=== PATIENT | female | born 1960 | race Caucasian/White ===

== ENCOUNTER 2019-11-13 09:36 | Emergency (ER) | payer SELFPAY ==
[~2019-11-13] VITALS: Ht 170.2 cm; Wt 102.5 kg
[~2019-11-13 09:36] MED LIST: AZITHROMYCIN250 MG PO; VITAMIN D1000 UNI1 PO
[2019-11-13] MEDS ORDERED: SODIUM CHLORIDE 0.9% 1000ML 1,000 ML IV STA (10:28)
[2019-11-13 10:43] LABS: BASOPHILS % 0.2 % (0.0-1.0); HEMATOCRIT 40.8 % (34.2-44.1); HEMOGLOBIN 13.2 g/dL (12.0-16.0); LYMPHOCYTES # (AUTO) 1.7 (1.0-3.2); LYMPHOCYTES % 27.2 % (18.0-39.1); MEAN CORPUSCULAR HEMOGLOBIN 29.5 pg (28-32); MEAN CORPUSCULAR HGB CONC 32.4 g/dL (31-35); MEAN CORPUSCULAR VOLUME 91.3 fL (81-99); MONOCYTES # (AUTO) 0.2 (0.2-0.8); MONOCYTES % 3.7 % (4.4-11.3); NEUTROPHILS # (AUTO) 4.2 (2.1-6.9); NEUTROPHILS % 68.7 % (38.7-80.0); PLATELET COUNT 258 x10e3/uL (140-360); RED BLOOD COUNT 4.47 x10e6/uL (3.6-5.1); RED CELL DISTRIBUTION WIDTH 12.5 % (11.7-14.4)
[2019-11-13] MEDS ORDERED: ONDANSETRON HCL INJ 2MG/ML 2ML 2 MG/ML VIAL IV STA (11:00)
[2019-11-13 11:03] LABS: ALBUMIN 3.6 g/dL (3.5-5.0); ALBUMIN/GLOBULIN RATIO 0.8 (0.8-2.0); ANION GAP 15.7 mmol/L (8-16); CALCIUM 8.9 mg/dL (8.4-10.2); CREATININE, SERUM 1.09 mg/dL (0.57-1.11); MAGNESIUM 1.8 MG/DL (1.3-2.1); POTASSIUM 3.7 mmol/L (3.5-5.1)
[2019-11-13 11:09] LABS: CREATINE KINASE MB 0.6 ng/mL (0-5.0)
[2019-11-13] MEDS ORDERED: ACETAMINOPHEN 325 MG TAB PO ONE (11:30)
[2019-11-13] MEDS ORDERED: IBUPROFEN 800MG/ 200ML 800 MG in SODIUM CHLORIDE 0.9% 250ML 250 ML IV ONE (11:30)
[2019-11-13] MEDS ORDERED: PANTOPRAZOLE 40 MG 10ML VIAL IV ONE (11:30)
--- NOTE | 2019-11-13 12:13 | Emergency Department Note ---
History of Present Illnes History of Present Illness Chief Complaint: COVID PUI History of Present Illness This is a 59 year old female Patient in from home with complaints of fever, nausea and vomiting that started last night. Patient was tested for covid 19 at [facility] last thursday11/06/2019 but has not received results. Patient states that she got tested because she had a little bit of a cough. Patient states that she feels weak and tired. Patient is febrile in traige but no tachypnea or respiratory distress noted. Historian: Patient Arrival Mode: Car Rn Urology Required: No Onset (how long ago): day(s) (1) Radiation: Reports non-radiation Severity: mild Onset quality: gradual Timing of current episode: intermittent Progression: waxing and waning Chronicity: new Context: Reports recent illness Relieving factors: none Exacerbating factors: none Associated symptoms: Reports cough, Reports fever/chills, Reports nausea/vomiting Treatments prior to arrival: none Past Medical/Family History Physician Review I have reviewed the patient's past medical and family history. Any updates have been documented here. Past Medical History Recent Fever: Yes Clinical Suspicion of Infectio: Yes New/Unexplained Change in Ment: No Past Medical History: None Past Surgical History: Cholecysctectomy Other Surgery: 2 C-SECTIONS Social History Smoking Cessation: Never Smoker Counseling Performed: No Alcohol Use: None Any Illegal Drug Use: No TB Exposure/Symptoms: No Physically hurt or threatened: No Family History Family history of heart diseas: No Other Last Tetanus: UTD Any Pre-Existing Lines (PICC,: No Review of Systems Review of Systems Constitutional: Reports as per HPI EENTM: Reports no symptoms Cardiovascular: Reports no symptoms Respiratory: Reports as per HPI Gastrointestinal: Reports no symptoms Genitourinary: Reports no symptoms Musculoskeletal: Reports no symptoms Integumentary: Reports no symptoms Neurological: Reports no symptoms Psychological: Reports no symptoms Endocrine: Reports no symptoms Hematological/Lymphatic: Reports no symptoms Physical Exam Related Data Allergies: Coded Allergies: Penicillins (Verified Allergy, Severe, 11/13/19) Uncoded Allergies: PCN (Allergy, Severe, ANAPHYLAXIS, 04/27/16) Triage Vital Signs Vital Signs Date Time Temp Pulse Resp B/P (MAP) Pulse Ox O2 Delivery O2 Flow Rate FiO2 11/13/19 10:00 102.0 119 19 113/66 97 Room Air Vital signs reviewed: Yes Physical Exam CONSTITUTIONAL Constitutional: Present well-developed, Present well-nourished HENT HENT: Present normocephalic, Present atraumatic, Present oropharynx clear/moist, Present nose normal HENT L/R: Present left ext ear normal, Present right ext ear normal EYES Eyes: Reports PERRL, Reports conjunctivae normal NECK Neck: Present ROM normal PULMONARY Pulmonary: Present effort normal, Present breath sounds normal CARDIOVASCULAR Cardiovascular: Present regular rhythm, Present heart sounds normal, Present capillary refill normal, Present normal rate GASTROINTESTINAL Abdominal: Present soft, Present nontender, Present bowel sounds normal GENITOURINARY Genitourinary: Present exam deferred SKIN Skin: Present warm, Present dry MUSCULOSKELETAL Musculoskeletal: Present ROM normal NEUROLOGICAL Neurological: Present alert, Present oriented x 3, Present no gross motor or sensory deficits PSYCHOLOGICAL Psychological: Present mood/affect normal, Present judgement normal Results Laboratory Result Diagram: 11/13/19 1034 11/13/19 1034 Laboratory Laboratory Tests Test 11/13/19 10:34 White Blood Count 6.14 x10e3/uL (4.8-10.8) Red Blood Count 4.47 x10e6/uL (3.6-5.1) Hemoglobin 13.2 g/dL (12.0-16.0) Hematocrit 40.8 % (34.2-44.1) Mean Corpuscular Volume 91.3 fL (81-99) Mean Corpuscular Hemoglobin 29.5 pg (28-32) Mean Corpuscular Hemoglobin Concent 32.4 g/dL (31-35) Red Cell Distribution Width 12.5 % (11.7-14.4) Platelet Count 258 x10e3/uL (140-360) Neutrophils (%) (Auto) 68.7 % (38.7-80.0) Lymphocytes (%) (Auto) 27.2 % (18.0-39.1) Monocytes (%) (Auto) 3.7 % (4.4-11.3) Eosinophils (%) (Auto) 0.0 % (0.0-6.0) Basophils (%) (Auto) 0.2 % (0.0-1.0) Neutrophils # (Auto) 4.2 (2.1-6.9) Lymphocytes # (Auto) 1.7 (1.0-3.2) Monocytes # (Auto) 0.2 (0.2-0.8) Eosinophils # (Auto) 0.0 (0.0-0.4) Basophils # (Auto) 0.0 (0.0-0.1) Absolute Immature Granulocyte (auto 0.01 x10e3/uL (0-0.1) Sodium Level 143 mmol/L (136-145) Potassium Level 3.7 mmol/L (3.5-5.1) Chloride Level 106 mmol/L (98-107) Carbon Dioxide Level 25 mmol/L (22-29) Anion Gap 15.7 mmol/L (8-16) Blood Urea Nitrogen 18 mg/dL (7-26) Creatinine 1.09 mg/dL (0.57-1.11) Estimat Glomerular Filtration Rate 51 ML/MIN (60-) BUN/Creatinine Ratio 17 (6-25) Glucose Level 106 mg/dL (74-118) Calcium Level 8.9 mg/dL (8.4-10.2) Magnesium Level 1.8 MG/DL (1.3-2.1) Total Bilirubin 0.4 mg/dL (0.2-1.2) Aspartate Amino Transf (AST/SGOT) 23 IU/L (5-34) Alanine Aminotransferase (ALT/SGPT) 27 IU/L (0-55) Alkaline Phosphatase 68 IU/L (40-150) Creatine Kinase 68 IU/L (29-168) Creatine Kinase MB 0.60 ng/mL (0-5.0) Troponin I 0.025 ng/mL (0-0.300) Total Protein 7.9 g/dL (6.5-8.1) Albumin 3.6 g/dL (3.5-5.0) Globulin 4.3 g/dL (2.3-3.5) Albumin/Globulin Ratio 0.8 (0.8-2.0) Lab results reviewed: Yes Imaging Imaging results reviewed: Yes Impressions EXAMINATION: CHEST SINGLE (PORTABLE) INDICATION: Cough fever and shortness of breath. COMPARISON: None FINDINGS: TUBES and LINES: None. LUNGS: Normal lung volume with hazy opacification of the lung bases. PLEURA: No pleural effusion or pneumothorax. HEART AND MEDIASTINUM: The cardiomediastinal silhouette is unremarkable. BONES AND SOFT TISSUES: No acute osseous lesion. Soft tissues are unremarkable. UPPER ABDOMEN: No free air under the diaphragm. IMPRESSION: Hazy opacification the bilateral lung bases which may represent atelectasis and/or developing pneumonia in the proper clinical setting. Signed by: Richie Ronquillo MD on 11/13/2019 1:15 PM Assessment & Plan Medical Decision Making MDM cough, f/c, n/v - likely COVID - check CBC, CHEM'S, CXR - R/O DEHYDRATION WITH RENAL INSUFF, PNEUMONIA (PT ON ZPACK, SEEN HERE RECENTLY), ELECTROLYTE ABNL Reassessment Reassessment self-quarantine, finish zpack, proning, f/u pcp Assessment & Plan Final Impression: (1) COVID-19 Depart Disposition: HOME, SELF-CARE Last Vital Signs Date Time Temp Pulse Resp B/P (MAP) Pulse Ox O2 Delivery O2 Flow Rate FiO2 11/13/19 11:28 86 27 127/72 98 Room Air 11/13/19 10:00 102.0 Home Meds Reported Medications Cholecalciferol (Vitamin D3) (VITAMIN D) 1,000 Unit Tablet, 1000 UNIT PO DAILY, #30 TAB 07/03/16 Medications in the ED Pantoprazole Sodium 40 mg ONCE ONCE IV Last administered on 11/13/19at 11:15; Admin Dose 40 MG; Start 11/13/19 at 11:30; Stop 11/13/19 at 11:31; Status DC Ondansetron HCl 4 mg ONCE STAT IV Last administered on 11/13/19at 11:15; Admin Dose 4 MG; Start 11/13/19 at 11:00; Stop 11/13/19 at 11:01; Status DC Sodium Chloride 1,000 ml @ 0 mls/hr Q0M STAT IV Last administered on 11/13/19at 10:52; Admin Dose 1,000 MLS/HR; Start 11/13/19 at 10:28; Stop 11/13/19 at 10:31; Status DC Ibuprofen 800 mg/ Sodium Chloride 450 ml @ 500 mls/hr NOW ONCE IV Last administered on 11/13/19at 11:27; Admin Dose 500 MLS/HR; Start 11/13/19 at 11:30; Stop 11/13/19 at 12:23 Acetaminophen 650 mg ONCE ONCE PO Last administered on 11/13/19at 11:15; Admin Dose 650 MG; Start 11/13/19 at 11:30; Stop 11/13/19 at 11:31; Status DC SURENDRA NUÑEZ MD Nov 13, 2019 12:13
--- NOTE | 2019-11-13 13:19 | Diagnostic Imaging Report ---
EXAMINATION: CHEST SINGLE (PORTABLE) INDICATION: Cough fever and shortness of breath. COMPARISON: None FINDINGS: TUBES and LINES: None. LUNGS: Normal lung volume with hazy opacification of the lung bases. PLEURA: No pleural effusion or pneumothorax. HEART AND MEDIASTINUM: The cardiomediastinal silhouette is unremarkable. BONES AND SOFT TISSUES: No acute osseous lesion. Soft tissues are unremarkable. UPPER ABDOMEN: No free air under the diaphragm. IMPRESSION: Hazy opacification the bilateral lung bases which may represent atelectasis and/or developing pneumonia in the proper clinical setting. Signed by: Richie Ronquillo MD on 11/13/2019 1:15 PM
== END 2019-11-13 13:57 | disposition home or self-care (01) ==
LOC: ER 10:22
DX: U07.1 COVID-19 (principal); R50.9 Fever, unspecified; R05 Cough
CPT/HCPCS: 36415; 71045; 80053; 82550; 82553; 83735; 84484; 85025; 99284; C9113; J2405; J7030; J7050

== ENCOUNTER 2019-11-14 22:15 | Emergency (ER) | payer SELFPAY ==
[~2019-11-14] VITALS: Ht 170.2 cm; Wt 102.5 kg
[2019-11-14] MEDS ORDERED: ONDANSETRON HCL 4 MG ORAL DISINTEGRATING TAB PO ONE (22:30)
--- NOTE | 2019-11-14 22:30 | Emergency Department Note ---
History of Present Illnes History of Present Illness History of Present Illness This is a 59 year old female arrived to the ED for shortness of breath secondary to coronavirus, immediately upon arrival patient states she feels fine and states she panicked. Patient states she would like to go home. Severity: mild Duration (how long): day(s) Timing of current episode: constant Progression: unchanged Chronicity: recurrent Context: Reports recent illness Relieving factors: none Exacerbating factors: none Past Medical/Family History Physician Review I have reviewed the patient's past medical and family history. Any updates have been documented here. Past Medical History Past Medical History: None Past Surgical History: Cholecysctectomy Other Surgery: 2 C-SECTIONS Other Last Tetanus: UTD Review of Systems Review of Systems Constitutional: Reports as per HPI, Reports fever, Reports malaise, Reports weakness EENTM: Reports no symptoms Cardiovascular: Reports no symptoms Respiratory: Reports as per HPI, Reports chest congestion Gastrointestinal: Reports no symptoms Genitourinary: Reports no symptoms Musculoskeletal: Reports no symptoms Integumentary: Reports no symptoms Neurological: Reports no symptoms Psychological: Reports no symptoms Endocrine: Reports no symptoms Hematological/Lymphatic: Reports no symptoms Review of other systems: All other systems negative Physical Exam Related Data Allergies: Coded Allergies: Penicillins (Verified Allergy, Severe, 11/13/19) Uncoded Allergies: PCN (Allergy, Severe, ANAPHYLAXIS, 04/27/16) Vital signs reviewed: Yes Physical Exam CONSTITUTIONAL Constitutional: Present well-developed, Present well-nourished HENT HENT: Present normocephalic, Present atraumatic, Present oropharynx clear/moist, Present nose normal HENT L/R: Present left ext ear normal, Present right ext ear normal EYES Eyes: Reports PERRL, Reports conjunctivae normal NECK Neck: Present ROM normal PULMONARY Pulmonary: Present effort normal, Present breath sounds normal CARDIOVASCULAR Cardiovascular: Present regular rhythm, Present heart sounds normal, Present capillary refill normal, Present normal rate GASTROINTESTINAL Abdominal: Present soft, Present nontender, Present bowel sounds normal GENITOURINARY Genitourinary: Present exam deferred SKIN Skin: Present warm, Present dry MUSCULOSKELETAL Musculoskeletal: Present ROM normal NEUROLOGICAL Neurological: Present alert, Present oriented x 3, Present no gross motor or sensory deficits PSYCHOLOGICAL Psychological: Present mood/affect normal, Present judgement normal Assessment & Plan Medical Decision Making MDM 59-year-old well-appearing female arrives to the ED with complaints of cough fever loss of taste and smell. Patient is clinically presenting with signs and symptoms consistent with Covid 19 and tested + Patient's oxygen saturation remained 99% even on exertion, no evidence of tachypnea or dyspnea noted in the ED. Pt did not meet criteria for hospital admission and this was discussed. Pt is not having any signs or symptoms of respiratory distress and not requiring supplemental O2. Pt was discharged on decadron and z-pack. Pt has a strong support system as an outpatient and discharge home with made with joint clinical decision making. Pt understands he is at high risk of morbidity and mortality given his age and co-morbidiites. Pt understands he is welcome to return to the ED at anytime for worsening symptoms. Spoke present length about the importance of sleeping on his stomach and rotating from side to side. Z-Kobe given, signs and symptoms for return discussed. Assessment & Plan Final Impression: (1) COVID-19 Depart Disposition: HOME, SELF-shelter Meds Reported Medications Cholecalciferol (Vitamin D3) (VITAMIN D) 1,000 Unit Tablet, 1000 UNIT PO DAILY, #30 TAB 07/03/16 JENELLE HOLCOMB DO Nov 14, 2019 22:31
== END 2019-11-14 23:35 | disposition home or self-care (01) ==
LOC: ER 22:21
DX: R06.02 Shortness of breath (principal); U07.1 COVID-19
CPT/HCPCS: 99282; Q0162

== ENCOUNTER 2019-11-18 16:05 | Inpatient (IN) | payer OTHER, SELFPAY ==
[~2019-11-18] VITALS: Ht 170.2 cm; Wt 102.5 kg
[2019-11-18 16:30] LABS: BASOPHILS % 0.2 % (0.0-1.0); HEMATOCRIT 39.5 % (34.2-44.1); HEMOGLOBIN 12.9 g/dL (12.0-16.0); LYMPHOCYTES # (AUTO) 1.4 (1.0-3.2); LYMPHOCYTES % 21.3 % (18.0-39.1); MEAN CORPUSCULAR HEMOGLOBIN 29.5 pg (28-32); MEAN CORPUSCULAR HGB CONC 32.7 g/dL (31-35); MEAN CORPUSCULAR VOLUME 90.2 fL (81-99); MONOCYTES # (AUTO) 0.2 (0.2-0.8); MONOCYTES % 3.3 % (4.4-11.3); NEUTROPHILS % 74.7 % (38.7-80.0); PLATELET COUNT 338 x10e3/uL (140-360); RED BLOOD COUNT 4.38 x10e6/uL (3.6-5.1); RED CELL DISTRIBUTION WIDTH 12.5 % (11.7-14.4)
[2019-11-18 16:51] LABS: INR 0.95; PROTHROMBIN TIME 13.1 seconds (11.9-14.5)
--- NOTE | 2019-11-18 16:57 | Diagnostic Imaging Report ---
Examination: Single AP view of the chest. COMPARISON: None. INDICATION: Weakness, infection DISCUSSION: Lines/tubes: None. Lungs: Peripheral and lower lung ground glass consolidations. Pleura: No pleural effusion or pneumothorax. Heart and mediastinum: The heart and the mediastinum are unremarkable. Bones and soft tissues: No acute bony abnormalities. IMPRESSION: 1. Multifocal pneumonia, likely viral Signed by: Dr. Calvin Maravilla M.D. on 11/18/2019 4:54 PM
[2019-11-18 17:01] LABS: ALANINE AMINOTRANSFERASE 24 IU/L (0-55); ALBUMIN 3.1 g/dL (3.5-5.0); ALBUMIN/GLOBULIN RATIO 0.7 (0.8-2.0); ALKALINE PHOSPHATASE 53 IU/L (40-150); ANION GAP 14.8 mmol/L (8-16); BLOOD UREA NITROGEN 18 mg/dL (7-26); BUN/CREATININE RATIO 20 (6-25); CALCIUM 9.1 mg/dL (8.4-10.2); CARBON DIOXIDE 23 mmol/L (22-29); CHLORIDE 104 mmol/L (98-107); CREATINE KINASE 44 IU/L (29-168); CREATININE, SERUM 0.89 mg/dL (0.57-1.11); EST GLOMERULAR FILTRATION RATE > 60 ML/MIN (60-); GLUCOSE 104 mg/dL (74-118); POTASSIUM 3.8 mmol/L (3.5-5.1); SODIUM 138 mmol/L (136-145)
--- OUTSIDE RECORDS SUMMARY | 2019-11-18 17:56 | XMS REPORT | Continuity of Care Document ---
Author Author [facility] t Organization [facility] Address [address] [place] [address] Dr. Jimenez [address] [place] [address] Phone Unavailable Care Team Providers Care Boilermaker Welder Name Role Phone MD RITA HOOVER PCP John HOLCOMB Attphys Unavailable Killian NUÑEZ Attphys Unavailable Laura KEYS Attphys Unavailable Payers Payer Name Policy Type Policy Number Effective Date Expiration Date John Berg [facility] [id number] 2011 00:00:00 [facility] Problems Condition Name Condition Details Condition Category Status Onset Date Resolution Date Last Treatment Date Treating Clinician Comments Source Pneumonia Problem Active [facility] Suspected severe acute respiratory syndr ome coronavirus 2 (SARS-CoV-2) infection Problem Active [facility] Fever Problem Active [facility] Infection due to severe acute respiratory syndrome coronavir us 2 (SARS-CoV-2) Problem Active [facility] Allergies, Adverse Reactions, Alerts Allergy Name Allergy Type Status Severity Reaction(s) Onset Date Inacti ve Date Treating Clinician Comments Source Penicillin Allergy to substance Active Severe 2019-11-13 00:00:00 [facility] Penicillin Allergy to substance Active Moderate 2019-11-08 00:00:0 0 [facility] PCN Allergy to substance Active Severe ANAPHYLAXIS 2016-04-27 00:00:00 [facility] Social History Social Habit Start Date Stop Date Quantity Comments Source Sex Assigned At 1960 00:00:00 1960 00:00:00 Female [facility] Medications Ordered Medication Name Filled Medication Name Start Date Stop Da te Current Medication? Ordering Clinician Indication Dosage Frequency Signature (SIG) Comments Components Source Cholecalciferol (Vitamin D3) (Vitamin D) 1,000 Unit TA BLET Cholecalciferol (Vitamin D3) (Vitamin D) 1,000 Unit TABLET Yes 1000 Daily [facility] Azithromycin (Z-Kobe) 250 Mg TABLET Azithromycin (Z-Kobe) 250 Mg T ABLET 2016-07-03 00:00:00 No 250 Use As Directed [facility] Vital Signs Vital Name Observation Time Observation Value Comments Source BMI (Body Mass Index) 2019-11-14 22:23:00 35.4 kg/m2 [facility] Weight 2019-11-14 22:21:00 226 [lb_av] [facility] Weight 2019-11-13 10:00:00 226 [lb_av] [facility] BMI (Body Mass Index) 2019-11-13 10:00:00 35.4 kg/m2 [facility] Body Temperature 2019-11-08 23:46:00 99.7 [degF] [facility] Procedures This patient has no known procedures. Plan of Care Planned Activity Planned Date Details Comments Source Instructions COVID-19: 06/27/2019 [facility] Instructions Fever - Adult [facility] Instructions Pneumonia - Viral [facility] Instructions COVID-19: 06/27/2019 [facility] Encounters Start Date/Time End Date/Time Encounter Type Admission Type Attendi [facility] Care Department Encounter ID Source 2019-11-14 22:21:00 2019-11-14 23:35:00 Departed Emergency Room [facility] [id number] [facility] dical [place] 2019-11-13 10:22:00 2019-11-13 13:57:00 Departed Emergency Room 1 JOAQUIN NARESHMARK [facility] [id number] [facility] 2019-11-08 22:00:00 2019-11-08 23:56:00 Departed Emergency Room MARTY KEYS [facility] [id number] I [facility] Results Test Description Test Time Test Comments Results Result Comments Source CHEST SINGLE (PORTABLE) 2019-11-18 16:53:00 [place] [address] Patient Name: MERE CHATMAN MR #: [id number] : 1960 Age/Sex: 59/F Req #: [id number] Adm Physician: Ordered by: JENELLE HOLCOMB DO Report #: [id number] Location: ER Room/Bed: Procedure: [id number] DX/CHEST SINGLE (PORTABLE) Exam Date: 11/18/19 Exam Time: 1635 REPORT STATUS: Signed Examination: Single AP view of the chest. COMPARISON: None. INDICATION: Weakness, infection DISCUSSION: Lines/tubes: None. Lungs: Peripheral and lower lung ground glass consolidations. Pleura: No pleural effusion or pneumothorax. Heart and mediastinum: The heart and the mediastinum are unremarkable. Bones and soft tissues: No acute bony abnormalities. IMPRESSION: 1. Multifocal pneumonia, likely viral Signed by: Dr. Vane Ng M.D. on 11/18/2019 4:54 PM Dictated By: VANE NG MD 53 Transcribed By: MEGA on 11/18/196 COPY TO: JENELLE HOLCOMB DO CHEST SINGLE (PORTABLE) 2019-11-13 13:14:00 [place] [address] Patient Name: MERE CHATMAN MR #: [id number] : 1960 Age/Sex: 59/F Req #: [id number] Adm Physician: Ordered by: SURENDRA NUÑEZ MD Report #: [id number] Location: ER Room/Bed: Procedure: [id number] DX/CHEST SINGLE (PORTABLE) Exam Date: 11/13/19 Exam Time: 1150 REPORT STATUS: Signed EXAMINATION: CHEST SINGLE (PORTABLE) INDICATION: Cough fever and shortness of breath. COMPARISON: None FINDINGS: TUBES and LINES: None. LUNGS: Normal lung volume with hazy opacification of the lung bases. PLEURA: No pleural effusion or pneumothorax. HEART AND MEDIASTINUM: The cardiomediastinal silhouette is unremarkable. BONES AND SOFT TISSUES: No acute osseous lesion. Soft tissues are unremarkable. UPPER ABDOMEN: No free air under the diaphragm. IMPRESSION: Hazy opacification the bilateral lung bases which may represent atelectasis and/or developing pneumonia in the proper clinical setting. Signed by: Aman Berman MD on 11/13/2019 1:15 PM Dictated By: AMAN BERMAN MD 1315 Transcribed By: MEGA on 11/13/19 1315 COPY TO: SURENDRA NUÑEZ MD Blood leukocytes automated count (number/volume) 2019-11-13 10:34:00 Test Item White Blood Count (test code = 6690-2) 6.14 4.8-10.8 [facility] automated count (number/volume)2019-11-13 10:34:00* Test Item Value Reference Range Interpretation Comments Red Blood Count (test code = 789-8) 4.47 3.6-5.1 [facility] CenterBlood hemoglobin measurement (moles/volume)2019-11-13 10:34:00* Test Item Value Reference Range Interpretation Comments Hemoglobin (test code = 46986-3) 13.2 12.0-16.0 [facility] CenterAutomated blood hematocrit (volume fraction)2019-11-13 10:34:00* Test Item Value Reference Range Interpretation Comments Hematocrit (test code = 4544-3) 40.8 34.2-44.1 [facility] CenterAutomated erythrocyte mean corpuscular wlodbj1580-21-80 10:34:00* Test Item Value Reference Range Interpretation Comments Mean Corpuscular Volume (test code = 787-2) 91.3 81-99 [facility] CenterAutomated erythrocyte mean corpuscular hemoglobin (mass per erythrocyte)2019-11-13 10:34:00* Test Item Value Reference Range Interpretation Comments Mean Corpuscular Hemoglobin (test code = 785-6) 29.5 28-32 [facility] CenterAutomated erythrocyte mean corpuscular hemoglobin concentration measurement (mass/volume)2019-11-13 10:34:00* Test Item Value Reference Range Interpretation Comments Mean Corpuscular Hemoglobin Concent (test code = 786-4) 32.4 31-35 [facility] CenterRDW KrlPz-Jch0719-39-02 10:34:00* Test Item Value Reference Range Interpretation Comments Red Cell Distribution Width (test code = 29583-0) 12.5 11.7 -14.4 [facility] CenterAutomated blood platelet count (count/volume)2019-11-13 10:34:00* Test Item Value Reference Range Interpretation Comments Platelet Count (test code = 777-3) 258 140-360 [facility] segmented neutrophil count as percentage of total rqyunfuvaz0535-00-59 10:34:00* Test Item Value Reference Range Interpretation Comments Neutrophils (%) (Auto) (test code = 51136-0) 68.7 38.7-80.0 [facility] CenterAutomated blood lymphocyte count as percentage ot total dgehajpcaq6485-47-52 10:34:00* Test Item Value Reference Range Interpretation Comments Lymphocytes (%) (Auto) (test code = 736-9) 27.2 18.0-39.1 [facility] CenterAutomated blood monocyte count as percentage of total iplinuodlu3946-36-52 10:34:00* Test Item Value Reference Range Interpretation Comments Monocytes (%) (Auto) (test code = 5905-5) 3.7 4.4-11.3 [facility] CenterAutomated blood eosinophil count as percentage of total zbxuwyqxkv3186-85-39 10:34:00* Test Item Value Reference Range Interpretation Comments Eosinophils (%) (Auto) (test code = 713-8) 0.0 0.0-6.0 [facility] CenterAutomated blood basophil count as percentage of total tcdxvgvnmk5773-02-25 10:34:00* Test Item Value Reference Range Interpretation Comments Basophils (%) (Auto) (test code = 706-2) 0.2 0.0-1.0 [facility] CenterFluoroscopic procedure less than one hour fdezivgw1319-20-95 10:34:00* Test Item Value Reference Range Interpretation Comments IM GRANULOCYTES % (test code = IM GRANULOCYTES %) 0.2 0.0- 1.0 [facility] CenterAutomated blood neutrophil count 2019-11-13 10:34:00* Test Item Value Reference Range Interpretation Comments Neutrophils # (Auto) (test code = 751-8) 4.2 2.1-6.9 [facility] CenterBlood lymphocytes count (number/volume) 2019-11-13 10:34:00* Test Item Value Reference Range Interpretation Comments Lymphocytes # (Auto) (test code = 42813-0) 1.7 1.0-3.2 [facility] CenterBlood monocytes automated count (number/volume)2019-11-13 10:34:00* Test Item Value Reference Range Interpretation Comments Monocytes # (Auto) (test code = 742-7) 0.2 0.2-0.8 [facility] CenterAutomated blood eosinophil count 2019-11-13 10:34:00* Test Item Value Reference Range Interpretation Comments Eosinophils # (Auto) (test code = 711-2) 0.0 0.0-0.4 [facility] CenterAutomated blood basophil count (count/volume)2019-11-13 10:34:00* Test Item Value Reference Range Interpretation Comments Basophils # (Auto) (test code = 704-7) 0.0 0.0-0.1 [facility] CenterFluoroscopic procedure less than one hour hxqehvlr5830-10-38 10:34:00* Test Item Value Reference Range Interpretation Comments Absolute Immature Granulocyte (auto (conner t code = Absolute Immature Granulocyte (auto) 0.01 0-0.1 [facility] sodium measurement (moles/volume)2019-11-13 10:34:00* Test Item Value Reference Range Interpretation Comments Sodium Level (test code = 2951-2) 143 136-145 [facility]wooderum or plasma potassium measurement (moles/volume)2019-11-13 10:34:00* Test Item Value Reference Range Interpretation Comments Potassium Level (test code = 2823-3) 3.7 3.5-5.1 [facility]wood[facility] or plasma chloride measurement (moles/volume)2019-11-13 10:34:00* Test Item Value Reference Range Interpretation Comments Chloride Level (test code = 2075-0) 106 98-107 [facility]wooderum or plasma carbon dioxide, total measurement (moles/volume)2019-11-13 10:34:00* Test Item Value Reference Range Interpretation Comments Carbon Dioxide Level (test code = 2028-9) 25 22-29 [facility]wooderum or plasma anion qgu7381-44-69 10:34:00* Test Item Value Reference Range Interpretation Comments Anion Gap (test code = 12087-0) 15.7 8-16 [facility]wooder[facility] or plasma urea nitrogen measurement (mass/volume)2019-11-13 10:34:00* Test Item Value Reference Range Interpretation Comments Blood Urea Nitrogen (test code = 3094-0) 18 7-26 [facility]wooderum or plasma creatinine measurement (mass/volume)2019-11-13 10:34:00* Test Item Value Reference Range Interpretation Comments Creatinine (test code = 2160-0) 1.09 0.57-1.11 [facility] or plasma urea nitrogen/creatinine mass kvxsw8586-86-55 10:34:00* Test Item Value Reference Range Interpretation Comments BUN/Creatinine Ratio (test code = 3097-3) 17 6-25 [facility] CenterEstimated glomerular filtration rate (GFR) zfdzwtllqjwdh2764-56-32 10:34:00* Test Item Value Reference Range Interpretation Comments Estimat Glomerular Filtration Rate (test code = 509041232) 51 >60 Ranges were taken from the National Kidney Disease Education Program and the [facility] Kid[facility] Foundation literature.Reference ranges:60 or greater: Hxehqe53-88 ( for 3 consecutive months): Chronic kidney disease 15 or less: Kidney failureLas Palmas Medical CenterGlucose emsjmildcqa4824-71-22 10:34:00* Test Item Value Reference Range Interpretation Comments Glucose Level (test code = VUL9968) 106 74-118 [facility] or plasma calcium measurement (mass/volume)2019-11-13 10:34:00* Test Item Value Reference Range Interpretation Comments Calcium Level (test code = 15963-3) 8.9 8.4-10.2 [facility]wood[facility] or plasma magnesium measurement (mass/volume)2019-11-13 10:34:00* Test Item Value Reference Range Interpretation Comments Magnesium Level (test code = 83356-6) 1.8 1.3-2.1 [facility] or plasma total bilirubin measurement (mass/volume)2019-11-13 10:34:00* Test Item Value Reference Range Interpretation Comments Total Bilirubin (test code = 1975-2) 0.4 0.2-1.2 [facility] CenterFluoroscopic procedure less than one hour quxlmssz9908-45-21 10:34:00* Test Item Value Reference Range Interpretation Comments Aspartate Amino Transf (AST/SGOT) (test code = Aspartate Amino Transf (AST/SGOT)) 23 5-34 [facility]wooderum or plasma alanine aminotransferase measurement (enzymatic activity/volume)2019-11-13 10:34:00* Test Item Value Reference Range Interpretation Comments Alanine Aminotransferase (ALT/SGPT) (test code = 1742-6) 27 0-55 [facility]wooderum or plasma protein measurement (mass/volume)2019-11-13 10:34:00* Test Item Value Reference Range Interpretation Comments Total Protein (test code = 2885-2) 7.9 6.5-8.1 [facility]wood[facility] or plasma albumin measurement (mass/volume)2019-11-13 10:34:00* Test Item Value Reference Range Interpretation Comments Albumin (test code = 1751-7) 3.6 3.5-5.0 [facility] CenterPlasma globulin measurement (mass/volume) 2019-11-13 10:34:00* Test Item Value Reference Range Interpretation Comments Globulin (test code = 37325-3) 4.3 2.3-3.5 [facility]wood[facility] or plasma albumin/globulin mass hjjzn0539-57-44 10:34:00* Test Item Value Reference Range Interpretation Comments Albumin/Globulin Ratio (test code = 1759-0) 0.8 0.8-2.0 [facility]er[facility] or plasma alkaline phosphatase measurement (enzymatic activity/volume)2019-11-13 10:34:00* Test Item Value Reference Range Interpretation Comments Alkaline Phosphatase (test code = 6768-6) 68 40-150 [facility]wooderum or plasma creatine kinase measurement (enzymatic activity/volume)2019-11-13 10:34:00* Test Item Value Reference Range Interpretation Comments Creatine Kinase (test code = 2157-6) 68 29-168 [facility]wooderum or plasma creatine kinase MB measurement (mass/volume)2019-11-13 10:34:00* Test Item Value Reference Range Interpretation Comments Creatine Kinase MB (test code = 60716-1) 0.60 0-5.0 [facility] CenterTroponin I measurement by highly sensitive enzyme odiukxqxfuj9544-36-78 10:34:00* Test Item Value Reference Range Interpretation Comments Troponin I (test code = 99477-1) 0.025 0-0.300 [facility] CenterBlood leukocytes automated count (number/volume)2019-11-13 10:34:00* Test Item Value Reference Range Interpretation Comments White Blood Count (test code = 6690-2) 6.14 4.8-10.8 [facility] CenterBlcuyuna [facility] erythrocytes automated count (number/volume)2019-11-13 10:34:00* Test Item Value Reference Range Interpretation Comments Red Blood Count (test code = 789-8) 4.47 3.6-5.1 [facility] CenterBlood hemoglobin measurement (moles/volume)2019-11-13 10:34:00* Test Item Value Reference Range Interpretation Comments Hemoglobin (test code = 83294-8) 13.2 12.0-16.0 [facility] CenterAutomated blood hematocrit (volume fraction)2019-11-13 10:34:00* Test Item Value Reference Range Interpretation Comments Hematocrit (test code = 4544-3) 40.8 34.2-44.1 [facility] CenterAutomated erythrocyte mean corpuscular sdypck5358-50-82 10:34:00* Test Item Value Reference Range Interpretation Comments Mean Corpuscular Volume (test code = 787-2) 91.3 81-99 [facility] CenterAutomated erythrocyte mean corpuscular hemoglobin (mass per erythrocyte)2019-11-13 10:34:00* Test Item Value Reference Range Interpretation Comments Mean Corpuscular Hemoglobin (test code = 785-6) 29.5 28-32 [facility] CenterAutomated erythrocyte mean corpuscular hemoglobin concentration measurement (mass/volume)2019-11-13 10:34:00* Test Item Value Reference Range Interpretation Comments Mean Corpuscular Hemoglobin Concent (test code = 786-4) 32.4 31-35 [facility] CenterRDW ZxrCt-Evo8272-14-02 10:34:00* Test Item Value Reference Range Interpretation Comments Red Cell Distribution Width (test code = 48466-6) 12.5 11.7 -14.4 [facility] CenterAutomated blood platelet count (count/volume)2019-11-13 10:34:00* Test Item Value Reference Range Interpretation Comments Platelet Count (test code = 777-3) 258 140-360 [facility] CenterAutomated blood segmented neutrophil count as percentage of total uriojdhsrw7128-22-22 10:34:00* Test Item Value Reference Range Interpretation Comments Neutrophils (%) (Auto) (test code = 26255-0) 68.7 38.7-80.0 [facility] CenterAutomated blood lymphocyte count as percentage ot total sdwhzzvivi4105-56-64 10:34:00* Test Item Value Reference Range Interpretation Comments Lymphocytes (%) (Auto) (test code = 736-9) 27.2 18.0-39.1 [facility] CenterAutomated blood monocyte count as percentage of total elvrtulhii9012-92-34 10:34:00* Test Item Value Reference Range Interpretation Comments Monocytes (%) (Auto) (test code = 5905-5) 3.7 4.4-11.3 [facility] CenterAutwake forest [facility] hospitaled blood eosinophil count as percentage of total nfjezhvcew6959-89-14 10:34:00* Test Item Value Reference Range Interpretation Comments Eosinophils (%) (Auto) (test code = 713-8) 0.0 0.0-6.0 [facility] CenterAutomated blood basophil count as percentage of total yzbcdcidkh9968-14-56 10:34:00* Test Item Value Reference Range Interpretation Comments Basophils (%) (Auto) (test code = 706-2) 0.2 0.0-1.0 [facility] CenterFluoroscopic procedure less than one hour qpisaiim3904-14-20 10:34:00* Test Item Value Reference Range Interpretation Comments IM GRANULOCYTES % (test code = IM GRANULOCYTES %) 0.2 0.0- 1.0 [facility] CenterAutomated blood neutrophil count 2019-11-13 10:34:00* Test Item Value Reference Range Interpretation Comments Neutrophils # (Auto) (test code = 751-8) 4.2 2.1-6.9 [facility] CenterBlood lymphocytes count (number/volume) 2019-11-13 10:34:00* Test Item Value Reference Range Interpretation Comments Lymphocytes # (Auto) (test code = 70222-8) 1.7 1.0-3.2 [facility] CenterBlood monocytes automated count (number/volume)2019-11-13 10:34:00* Test Item Value Reference Range Interpretation Comments Monocytes # (Auto) (test code = 742-7) 0.2 0.2-0.8 [facility] CenterAutomated blood eosinophil count 2019-11-13 10:34:00* Test Item Value Reference Range Interpretation Comments Eosinophils # (Auto) (test code = 711-2) 0.0 0.0-0.4 [facility] CenterAutomated blood basophil count (count/volume)2019-11-13 10:34:00* Test Item Value Reference Range Interpretation Comments Basophils # (Auto) (test code = 704-7) 0.0 0.0-0.1 [facility] CenterFluoroscopic procedure less than one hour xxuujxle4251-27-78 10:34:00* Test Item Value Reference Range Interpretation Comments Absolute Immature Granulocyte (auto (conner t code = Absolute Immature Granulocyte (auto) 0.01 0-0.1 [facility] or plasma sodium measurement (moles/volume)2019-11-13 10:34:00* Test Item Value Reference Range Interpretation Comments Sodium Level (test code = 2951-2) 143 136-145 [facility]wooderum or plasma potassium measurement (moles/volume)2019-11-13 10:34:00* Test Item Value Reference Range Interpretation Comments Potassium Level (test code = 2823-3) 3.7 3.5-5.1 [facility] or plasma chloride measurement (moles/volume)2019-11-13 10:34:00* Test Item Value Reference Range Interpretation Comments Chloride Level (test code = 2075-0) 106 98-107 [facility]wooderum or plasma carbon dioxide, total measurement (moles/volume)2019-11-13 10:34:00* Test Item Value Reference Range Interpretation Comments Carbon Dioxide Level (test code = 2028-9) 25 22-29 [facility]wooderum or plasma anion stc8547-31-09 10:34:00* Test Item Value Reference Range Interpretation Comments Anion Gap (test code = 34664-7) 15.7 8-16 [facility]wooder[facility] or plasma urea nitrogen measurement (mass/volume)2019-11-13 10:34:00* Test Item Value Reference Range Interpretation Comments Blood Urea Nitrogen (test code = 3094-0) 18 7-26 [facility] or plasma creatinine measurement (mass/volume)2019-11-13 10:34:00* Test Item Value Reference Range Interpretation Comments Creatinine (test code = 2160-0) 1.09 0.57-1.11 [facility] or plasma urea nitrogen/creatinine mass fremh6201-08-46 10:34:00* Test Item Value Reference Range Interpretation Comments BUN/Creatinine Ratio (test code = 3097-3) 17 6-25 [facility] CenterEstimated glomerular filtration rate (GFR) vixztdkzjgdgy6681-95-80 10:34:00* Test Item Value Reference Range Interpretation Comments Estimat Glomerular Filtration Rate (test code = 780874716) 51 >60 Ranges were taken from the National Kidney Disease Education Program and the [facility] Kid[facility] Foundation literature.Reference ranges:60 or greater: Yeglzm97-32 ( for 3 consecutive months): Chronic kidney disease 15 or less: Kidney failureLas Palmas Medical CenterGlucose llmdwzauvzd3885-22-19 10:34:00* Test Item Value Reference Range Interpretation Comments Glucose Level (test code = VUV6852) 106 74-118 [facility] or plasma calcium measurement (mass/volume)2019-11-13 10:34:00* Test Item Value Reference Range Interpretation Comments Calcium Level (test code = 03929-3) 8.9 8.4-10.2 [facility]um or plasma magnesium measurement (mass/volume)2019-11-13 10:34:00* Test Item Value Reference Range Interpretation Comments Magnesium Level (test code = 96219-4) 1.8 1.3-2.1 [facility] or plasma total bilirubin measurement (mass/volume)2019-11-13 10:34:00* Test Item Value Reference Range Interpretation Comments Total Bilirubin (test code = 1975-2) 0.4 0.2-1.2 [facility] CenterFluoroscopic procedure less than one hour yydwyyse4322-94-34 10:34:00* Test Item Value Reference Range Interpretation Comments Aspartate Amino Transf (AST/SGOT) (test code = Aspartate Amino Transf (AST/SGOT)) 23 5-34 [facility]wooderum or plasma alanine aminotransferase measurement (enzymatic activity/volume)2019-11-13 10:34:00* Test Item Value Reference Range Interpretation Comments Alanine Aminotransferase (ALT/SGPT) (test code = 1742-6) 27 0-55 [facility]wooder[facility] or plasma protein measurement (mass/volume)2019-11-13 10:34:00* Test Item Value Reference Range Interpretation Comments Total Protein (test code = 2885-2) 7.9 6.5-8.1 [facility] or plasma albumin measurement (mass/volume)2019-11-13 10:34:00* Test Item Value Reference Range Interpretation Comments Albumin (test code = 1751-7) 3.6 3.5-5.0 [facility] CenterPlasma globulin measurement (mass/volume) 2019-11-13 10:34:00* Test Item Value Reference Range Interpretation Comments Globulin (test code = 11697-2) 4.3 2.3-3.5 [facility] or plasma albumin/globulin mass duwmm4483-27-24 10:34:00* Test Item Value Reference Range Interpretation Comments Albumin/Globulin Ratio (test code = 1759-0) 0.8 0.8-2.0 [facility]er[facility] or plasma alkaline phosphatase measurement (enzymatic activity/volume)2019-11-13 10:34:00* Test Item Value Reference Range Interpretation Comments Alkaline Phosphatase (test code = 6768-6) 68 40-150 [facility] creatine kinase measurement (enzymatic activity/volume)2019-11-13 10:34:00* Test Item Value Reference Range Interpretation Comments Creatine Kinase (test code = 2157-6) 68 29-168 [facility] creatine kinase MB measurement (mass/volume)2019-11-13 10:34:00* Test Item Value Reference Range Interpretation Comments Creatine Kinase MB (test code = 93074-8) 0.60 0-5.0 [facility] measurement by highly sensitive enzyme ngoncmqvcgs3313-31-78 10:34:00* Test Item Value Reference Range Interpretation Comments Troponin I (test code = 52354-6) 0.025 0-0.300 [facility]CHE[facility] ([facility])2019-11-08 23:21:00 [facility] [address] [address] Patient Name: EMILI CHATMAN MR #: [id number] : 1960 Age/Sex: 59/F Req #: [id number] Adm Physician: Ordered by: MARTY KEYS MD Report #: [id number] Location: ER Room/Bed: Procedure: [id number] DX/CHES T SINGLE (PORTABLE) Exam Date: 11/08/19 Exam Time: 2 233 REPORT STATUS: Signed EXAMIN ATION: CHEST SINGLE (PORTABLE) INDICATION: COVID SYMPTOMS, PALPITATION S COMPARISON: None FINDINGS: The heart size and pulmona ry vasculature are normal. Patchy and strandy left basilar opacity. The rig ht lung is clear. No pleural effusion. No pneumothorax. IMPRESSION: Left base pneumonia or atelectasis. Radiographic follow-up in 6-8 weeks is re commended to document resolution. Signed by: Tiesha Strange MD on 11/08/2019 11:24 PM Dictated By: TIESHA STRANGE MD [id number] Transcribed By: MEGA on 11/08/19 5247 COPY TO: MARTY KEYS MD Blood leukocytes automated count (number/volume)2019-11-08 22:06:00* Test Item Value Reference Range Interpretation Comments White Blood Count (test code = 6690-2) 5.46 4.8-10.8 [facility] erythrocytes automated count (number/volume)2019-11-08 22:06:00* Test Item Value Reference Range Interpretation Comments Red Blood Count (test code = 789-8) 4.36 3.6-5.1 [facility] CenterBlood hemoglobin measurement (moles/volume)2019-11-08 22:06:00* Test Item Value Reference Range Interpretation Comments Hemoglobin (test code = 50123-7) 13.2 12.0-16.0 [facility] CenterAutomated blood hematocrit (volume fraction)2019-11-08 22:06:00* Test Item Value Reference Range Interpretation Comments Hematocrit (test code = 4544-3) 39.6 34.2-44.1 [facility] CenterAutomated erythrocyte mean corpuscular [id number] 22:06:00* Test Item Value Reference Range Interpretation Comments Mean Corpuscular Volume (test code = 787-2) 90.8 81-99 [facility] CenterAutomated erythrocyte mean corpuscular hemoglobin (mass per erythrocyte)2019-11-08 22:06:00* Test Item Value Reference Range Interpretation Comments Mean Corpuscular Hemoglobin (test code = 785-6) 30.3 28-32 [facility] CenterAutomated erythrocyte mean corpuscular hemoglobin concentration measurement (mass/volume)2019-11-08 22:06:00* Test Item Value Reference Range Interpretation Comments Mean Corpuscular Hemoglobin Concent (test code = 786-4) 33.3 31-35 [facility] CenterRDW KedVg-Cyb9361-83-28 22:06:00* Test Item Value Reference Range Interpretation Comments Red Cell Distribution Width (test code = 62789-4) 12.4 11.7 -14.4 [facility] CenterAutomated blood platelet count (count/volume)2019-11-08 22:06:00* Test Item Value Reference Range Interpretation Comments Platelet Count (test code = 777-3) 277 140-360 [facility] CenterAutomated blood segmented neutrophil count as percentage of total nxcvwwnewr4933-11-52 22:06:00* Test Item Value Reference Range Interpretation Comments Neutrophils (%) (Auto) (test code = 66504-1) 63.9 38.7-80.0 [facility] CenterAutomated blood lymphocyte count as percentage ot total aeiwyrvisb2159-11-26 22:06:00* Test Item Value Reference Range Interpretation Comments Lymphocytes (%) (Auto) (test code = 736-9) 28.9 18.0-39.1 [facility] CenterAutomated blood monocyte count as percentage of total knwtmvflvt0028-47-67 22:06:00* Test Item Value Reference Range Interpretation Comments Monocytes (%) (Auto) (test code = 5905-5) 6.4 4.4-11.3 [facility] CenterAutomated blood eosinophil count as percentage of total hhhhadlcby1804-06-02 22:06:00* Test Item Value Reference Range Interpretation Comments Eosinophils (%) (Auto) (test code = 713-8) 0.4 0.0-6.0 [facility] CenterAutomated blood basophil count as percentage of total safdrkxnrq9655-16-25 22:06:00* Test Item Value Reference Range Interpretation Comments Basophils (%) (Auto) (test code = 706-2) 0.2 0.0-1.0 [facility] CenterFluoroscopic procedure less than one hour xipdjbfl7588-44-53 22:06:00* Test Item Value Reference Range Interpretation Comments IM GRANULOCYTES % (test code = IM GRANULOCYTES %) 0.2 0.0- 1.0 [facility] CenterAutomated blood neutrophil count 2019-11-08 22:06:00* Test Item Value Reference Range Interpretation Comments Neutrophils # (Auto) (test code = 751-8) 3.5 2.1-6.9 [facility] CenterBlood lymphocytes count (number/volume) 2019-11-08 22:06:00* Test Item Value Reference Range Interpretation Comments Lymphocytes # (Auto) (test code = 89246-1) 1.6 1.0-3.2 [facility] CenterBlood monocytes automated count (number/volume)2019-11-08 22:06:00* Test Item Value Reference Range Interpretation Comments Monocytes # (Auto) (test code = 742-7) 0.4 0.2-0.8 [facility] CenterAutomated blood eosinophil count 2019-11-08 22:06:00* Test Item Value Reference Range Interpretation Comments Eosinophils # (Auto) (test code = 711-2) 0.0 0.0-0.4 [facility] CenterAutomated blood basophil count (count/volume)2019-11-08 22:06:00* Test Item Value Reference Range Interpretation Comments Basophils # (Auto) (test code = 704-7) 0.0 0.0-0.1 [facility] CenterFluoroscopic procedure less than one hour zasreidu7160-63-57 22:06:00* Test Item Value Reference Range Interpretation Comments Absolute Immature Granulocyte (auto (conner t code = Absolute Immature Granulocyte (auto) 0.01 0-0.1 [facility] plasma sodium measurement (moles/volume)2019-11-08 22:06:00* Test Item Value Reference Range Interpretation Comments Sodium Level (test code = 2951-2) 143 136-145 [facility]er[facility] or plasma potassium measurement (moles/volume)2019-11-08 22:06:00* Test Item Value Reference Range Interpretation Comments Potassium Level (test code = 2823-3) 3.5 3.5-5.1 [facility] or plasma chloride measurement (moles/volume)2019-11-08 22:06:00* Test Item Value Reference Range Interpretation Comments Chloride Level (test code = 2075-0) 108 98-107 [facility]er[facility] or plasma carbon dioxide, total measurement (moles/volume)2019-11-08 22:06:00* Test Item Value Reference Range Interpretation Comments Carbon Dioxide Level (test code = 2028-9) 22 [facility]erum or plasma anion eun4176-86-12 22:06:00* Test Item Value Reference Range Interpretation Comments Anion Gap (test code = 22902-7) 16.5 8-16 [facility] or plasma urea nitrogen measurement (mass/volume)2019-11-08 22:06:00* Test Item Value Reference Range Interpretation Comments Blood Urea Nitrogen (test code = 3094-0) 16 7-26 [facility]er[facility] or plasma creatinine measurement (mass/volume)2019-11-08 22:06:00* Test Item Value Reference Range Interpretation Comments Creatinine (test code = 2160-0) 1.11 0.57-1.11 [facility]erum or plasma urea nitrogen/creatinine mass bcuaa6226-97-12 22:06:00* Test Item Value Reference Range Interpretation Comments BUN/Creatinine Ratio (test code = 3097-3) 14 - [facility] CenterEstimated glomerular filtration rate (GFR) oqjpiznaqvraq8049-72-98 22:06:00* Test Item Value Reference Range Interpretation Comments Estimat Glomerular Filtration Rate (test code = 665680203) 50 >60 Ranges were taken from the National Kidney Disease Education Program and the [facility] southeasternal [employer] Foundation literature.Reference ranges:60 or greater: Stdxzw55-65 ( for 3 consecutive months): Chronic kidney disease 15 or less: Kidney failureLas Palmas Medical CenterGlucose aqmnqektymv1649-23-14 22:06:00* Test Item Value Reference Range Interpretation Comments Glucose Level (test code = OEA5070) 146 74-118 [facility] or plasma calcium measurement (mass/volume)2019-11-08 22:06:00* Test Item Value Reference Range Interpretation Comments Calcium Level (test code = 53971-4) 9.2 8.4-10.2 [facility] or plasma total bilirubin measurement (mass/volume)2019-11-08 22:06:00* Test Item Value Reference Range Interpretation Comments Total Bilirubin (test code = 1975-2) 0.3 0.2-1.2 [facility] CenterFluoroscopic procedure less than one hour fccmiyei1981-19-02 22:06:00* Test Item Value Reference Range Interpretation Comments Aspartate Amino Transf (AST/SGOT) (test code = Aspartate Amino Transf (AST/SGOT)) 36 5-34 [facility] or plasma alanine aminotransferase measurement (enzymatic activity/volume)2019-11-08 22:06:00* Test Item Value Reference Range Interpretation Comments Alanine Aminotransferase (ALT/SGPT) (test code = 1742-6) 47 0-55 [facility]er[facility] or plasma protein measurement (mass/volume)2019-11-08 22:06:00* Test Item Value Reference Range Interpretation Comments Total Protein (test code = 2885-2) 8.0 6.5-8.1 [facility] or plasma albumin measurement (mass/volume)2019-11-08 22:06:00* Test Item Value Reference Range Interpretation Comments Albumin (test code = 1751-7) 3.8 3.5-5.0 [facility] CenterPlasma globulin measurement (mass/volume) 2019-11-08 22:06:00* Test Item Value Reference Range Interpretation Comments Globulin (test code = 52221-3) 4.2 2.3-3.5 [facility] or plasma albumin/globulin mass fsmbz9281-07-52 22:06:00* Test Item Value Reference Range Interpretation Comments Albumin/Globulin Ratio (test code = 1759-0) 0.9 0.8-2.0 [facility] or plasma alkaline phosphatase measurement (enzymatic activity/volume)2019-11-08 22:06:00* Test Item Value Reference Range Interpretation Comments Alkaline Phosphatase (test code = 6768-6) 86 40-150 [facility] or plasma creatine kinase measurement (enzymatic activity/volume)2019-11-08 22:06:00* Test Item Value Reference Range Interpretation Comments Creatine Kinase (test code = 2157-6) 56 29-168 [facility] or plasma creatine kinase MB measurement (mass/volume)2019-11-08 22:06:00* Test Item Value Reference Range Interpretation Comments Creatine Kinase MB (test code = 05807-3) 0.40 0-5.0 [facility] CenterTroponin I measurement by highly sensitive enzyme sohiijlwtzl0290-56-64 22:06:00* Test Item Value Reference Range Interpretation Comments Troponin I (test code = 98017-7) < 0.001 0-0.300 [facility]
--- NOTE | 2019-11-18 17:57 | Emergency Department Note ---
History of Present Illnes History of Present Illness Chief Complaint: COVID PUI History of Present Illness This is a 59 year old female arrived to the ED with complaints of inability to tolerate oral intake secondary to Covid 19 . Historian: Patient, Family Member Arrival Mode: Car Onset (how long ago): day(s) Severity: moderate Duration (how long): day(s) Timing of current episode: constant Progression: worsening Chronicity: new Past Medical/Family History Physician Review I have reviewed the patient's past medical and family history. Any updates have been documented here. Past Medical History Recent Fever: Yes Clinical Suspicion of Infectio: Yes New/Unexplained Change in Ment: No Past Medical History: None Past Surgical History: Cholecysctectomy, Other Surgery: 2 C-SECTIONS Social History Smoking Cessation: Never Smoker Counseling Performed: No Alcohol Use: None Any Illegal Drug Use: No Physically hurt or threatened: No Other Last Tetanus: UTD Any Pre-Existing Lines (PICC,: No Review of Systems Review of Systems Constitutional: Reports as per HPI, Reports malaise, Reports weakness EENTM: Reports no symptoms Cardiovascular: Reports no symptoms Respiratory: Reports no symptoms Gastrointestinal: Reports no symptoms Genitourinary: Reports no symptoms Musculoskeletal: Reports no symptoms Integumentary: Reports no symptoms Neurological: Reports no symptoms Psychological: Reports no symptoms Endocrine: Reports no symptoms Hematological/Lymphatic: Reports no symptoms Physical Exam Related Data Allergies: Coded Allergies: Penicillins (Verified Allergy, Severe, 11/13/19) ondansetron (Verified Allergy, Unknown, hives, 11/18/19) Uncoded Allergies: PCN (Allergy, Severe, ANAPHYLAXIS, 04/27/16) Triage Vital Signs Vital Signs Date Time Temp Pulse Resp B/P (MAP) Pulse Ox O2 Delivery O2 Flow Rate FiO2 11/18/19 16:14 103.1 94 26 119/57 97 Room Air Vital signs reviewed: Yes Physical Exam CONSTITUTIONAL Constitutional: Present well-developed, Present well-nourished HENT HENT: Present normocephalic, Present atraumatic, Present oropharynx clear/moist, Present nose normal HENT L/R: Present left ext ear normal, Present right ext ear normal EYES Eyes: Reports PERRL, Reports conjunctivae normal NECK Neck: Present ROM normal PULMONARY Pulmonary: Present effort normal, Present breath sounds normal CARDIOVASCULAR Cardiovascular: Present regular rhythm, Present heart sounds normal, Present capillary refill normal, Present normal rate GASTROINTESTINAL Abdominal: Present soft, Present nontender, Present bowel sounds normal GENITOURINARY Genitourinary: Present exam deferred SKIN Skin: Present warm, Present dry MUSCULOSKELETAL Musculoskeletal: Present ROM normal NEUROLOGICAL Neurological: Present alert, Present oriented x 3, Present no gross motor or sensory deficits PSYCHOLOGICAL Psychological: Present mood/affect normal, Present judgement normal Results Laboratory Result Diagram: 11/18/19 1620 11/18/19 1620 Laboratory Laboratory Tests Test 11/18/19 16:20 11/18/19 14:45 White Blood Count 6.63 x10e3/uL (4.8-10.8) Red Blood Count 4.38 x10e6/uL (3.6-5.1) Hemoglobin 12.9 g/dL (12.0-16.0) Hematocrit 39.5 % (34.2-44.1) Mean Corpuscular Volume 90.2 fL (81-99) Mean Corpuscular Hemoglobin 29.5 pg (28-32) Mean Corpuscular Hemoglobin Concent 32.7 g/dL (31-35) Red Cell Distribution Width 12.5 % (11.7-14.4) Platelet Count 338 x10e3/uL (140-360) Neutrophils (%) (Auto) 74.7 % (38.7-80.0) Lymphocytes (%) (Auto) 21.3 % (18.0-39.1) Monocytes (%) (Auto) 3.3 % (4.4-11.3) Eosinophils (%) (Auto) 0.0 % (0.0-6.0) Basophils (%) (Auto) 0.2 % (0.0-1.0) Neutrophils # (Auto) 5.0 (2.1-6.9) Lymphocytes # (Auto) 1.4 (1.0-3.2) Monocytes # (Auto) 0.2 (0.2-0.8) Eosinophils # (Auto) 0.0 (0.0-0.4) Basophils # (Auto) 0.0 (0.0-0.1) Absolute Immature Granulocyte (auto 0.03 x10e3/uL (0-0.1) Prothrombin Time 13.1 seconds (11.9-14.5) Prothromb Time International Ratio 0.95 Activated Partial Thromboplast Time 29.0 seconds (23.8-35.5) Sodium Level 138 mmol/L (136-145) Potassium Level 3.8 mmol/L (3.5-5.1) Chloride Level 104 mmol/L (98-107) Carbon Dioxide Level 23 mmol/L (22-29) Anion Gap 14.8 mmol/L (8-16) Blood Urea Nitrogen 18 mg/dL (7-26) Creatinine 0.89 mg/dL (0.57-1.11) Estimat Glomerular Filtration Rate > 60 ML/MIN (60-) BUN/Creatinine Ratio 20 (6-25) Glucose Level 104 mg/dL (74-118) Calcium Level 9.1 mg/dL (8.4-10.2) Total Bilirubin 0.3 mg/dL (0.2-1.2) Aspartate Amino Transf (AST/SGOT) 31 IU/L (5-34) Alanine Aminotransferase (ALT/SGPT) 24 IU/L (0-55) Alkaline Phosphatase 53 IU/L (40-150) Creatine Kinase 44 IU/L (29-168) Creatine Kinase MB 0.30 ng/mL (0-5.0) Troponin I < 0.001 ng/mL (0-0.300) Total Protein 7.6 g/dL (6.5-8.1) Albumin 3.1 g/dL (3.5-5.0) Globulin 4.5 g/dL (2.3-3.5) Albumin/Globulin Ratio 0.7 (0.8-2.0) Lab results reviewed: Yes Imaging Imaging results reviewed: Yes Assessment & Plan Medical Decision Making MDM 59 yo F arrived to the ED with generalized malaise and weakness 2/2 the coronavirus. Assessment & Plan Final Impression: (1) COVID-19 Depart Disposition: ADMITTED Last Vital Signs Date Time Temp Pulse Resp B/P (MAP) Pulse Ox O2 Delivery O2 Flow Rate FiO2 11/18/19 17:34 102.9 89 16 144/84 97 Room Air Home Meds Reported Medications Cholecalciferol (Vitamin D3) (VITAMIN D) 1,000 Unit Tablet, 1000 UNIT PO DAILY, #30 TAB 07/03/16 JENELLE HOLCOMB DO Nov 18, 2019 17:56
[2019-11-18] MEDS ORDERED: ACETAMINOPHEN 325 MG TAB PO ONE (18:00)
--- OUTSIDE RECORDS SUMMARY | 2019-11-18 18:10 | XMS REPORT | Continuity of Care Document ---
Author Author [facility] t Organization [facility] Address [address] [place] [address] Phone Unavailable Care Team Providers Care Drill Press Set Up Operator Name Role Phone MD RITA HOOVER PCP John HOLCOMB Attphys Unavailable Killian NUÑEZ Attphys Unavailable Laura KEYS Attphys Unavailable Payers Payer Name Policy Type Policy Number Effective Date Expiration Date [facility] [id number] 2011 00:00:00 [facility] Problems Condition Name Condition Details Condition Category Status Onset Date Resolution Date Last Treatment Date Treating Clinician Comments Source Infection due to severe acute respiratory syndrome coronavir us 2 (SARS-CoV-2) Problem Active [facility] Pneumonia Problem Active [facility] Suspected severe acute respiratory syndr ome coronavirus 2 (SARS-CoV-2) infection Problem Active [facility] Fever Problem Active [facility] Allergies, Adverse Reactions, Alerts Allergy Name Allergy Type Status Severity Reaction(s) Onset Date Inacti ve Date Treating Clinician Comments Source Penicillin Allergy to substance Active Severe 2019-11-13 00:00:00 [facility] Penicillin Allergy to substance Active Moderate 2019-11-08 00:00:0 0 [facility] PCN Allergy to substance Active Severe ANAPHYLAXIS 2016-04-27 00:00:00 [facility] Social History Social Habit Start Date Stop Date Quantity Comments Source Sex Assigned At 1960 00:00:00 1960 00:00:00 Female [facility] Medications Ordered Medication Name Filled Medication Name Start Date Stop Da te Current Medication? Ordering Clinician Indication Dosage Frequency Signature (SIG) Comments Components Source Cholecalciferol (Vitamin D3) (Vitamin D) 1,000 Unit TA BLET Cholecalciferol (Vitamin D3) (Vitamin D) 1,000 Unit TABLET Yes 1000 Daily [facility] Azithromycin (Z-Kobe) 250 Mg TABLET Azithromycin (Z-Kobe) 250 Mg T ABLET 2016-07-03 00:00:00 No 250 Use As Directed [facility] Vital Signs Vital Name Observation Time Observation Value Comments Source BMI (Body Mass Index) 2019-11-14 22:23:00 35.4 kg/m2 [facility] Weight 2019-11-14 22:21:00 226 [lb_av] [facility] Weight 2019-11-13 10:00:00 226 [lb_av] [facility] BMI (Body Mass Index) 2019-11-13 10:00:00 35.4 kg/m2 [facility] Body Temperature 2019-11-08 23:46:00 99.7 [degF] [facility] Procedures This patient has no known procedures. Plan of Care Planned Activity Planned Date Details Comments Source Instructions COVID-19: 06/27/2019 [facility] Instructions COVID-19: 06/27/2019 [facility] Instructions Fever - Adult [facility] Instructions Pneumonia - Viral [facility] Encounters Start Date/Time End Date/Time Encounter Type Admission Type Attendi [facility] Care Department Encounter ID Source 2019-11-14 22:21:00 2019-11-14 23:35:00 Departed Emergency Room [facility] [id number] [facility] 2019-11-13 10:22:00 2019-11-13 13:57:00 Departed Emergency Room 1 JOAQUIN SURENDRA [facility] [id number] [facility] 2019-11-08 22:00:00 2019-11-08 23:56:00 Departed Emergency Room MARTY KEYS [facility] [id number] [facility] Results Test Description Test Time Test Comments Results Result Comments Source CHEST SINGLE (PORTABLE) 2019-11-18 16:53:00 [place] [address] Patient Name: MERE CHATMAN MR #: [id number] : 1960 Age/Sex: 59/F Req #: [id number] Adm Physician: Ordered by: JENELLE HOLCOMB DO Report #: [id number] Location: ER Room/Bed: Procedure: [id number] DX/CHEST SINGLE (PORTABLE) Exam Date: 11/18/19 Exam [...] NG MD 53 Transcribed By: MEGA on 11/18/192 COPY TO: JENELLE HOLCOMB DO CHEST SINGLE (PORTABLE) 2019-11-13 13:14:00 [place] [address] Patient Name: MERE CHATMAN MR #: [id number] : 1960 Age/Sex: 59/F Req #: [id number] Adm Physician: Ordered by: SURENDRA NUÑEZ MD Report #: [id number] Location: ER Room/Bed: Procedure: [id number] DX/CHEST SINGLE (PORTABLE) Exam Date: 11/13/19 Exam [...] Count (test code = 6690-2) 6.14 4.8-10.8 [facility] count (number/volume)2019-11-13 10:34:00* Test Item Value Reference Range Interpretation Comments Red Blood Count (test code = 789-8) 4.47 3.6-5.1 [facility] measurement (moles/volume)2019-11-13 10:34:00* Test Item Value Reference Range Interpretation Comments Hemoglobin (test code = 74991-0) 13.2 12.0-16.0 [facility] blood hematocrit (volume fraction)2019-11-13 10:34:00* Test Item Value Reference Range Interpretation Comments Hematocrit (test code = 4544-3) 40.8 34.2-44.1 [facility] erythrocyte mean corpuscular wehvby4800-07-97 10:34:00* Test Item Value Reference Range Interpretation Comments Mean Corpuscular Volume (test code = 787-2) 91.3 81-99 [facility]Autom[facility] erythrocyte mean corpuscular hemoglobin (mass per erythrocyte)2019-11-13 10:34:00* Test Item Value Reference Range Interpretation Comments Mean Corpuscular Hemoglobin (test code = 785-6) 29.5 28-32 [facility] HospitalAutom[facility] erythrocyte mean corpuscular hemoglobin concentration measurement (mass/volume)2019-11-13 10:34:00* Test Item Value Reference Range Interpretation Comments Mean Corpuscular Hemoglobin Concent (test code = 786-4) 32.4 31-35 [facility] HospitalRDW BpfAs-Pdd8202-24-02 10:34:00* Test Item Value Reference Range Interpretation Comments Red Cell Distribution Width (test code = 06962-0) 12.5 11.7 -14.4 [facility] HospitalAutom[facility] blood platelet count (count/volume)2019-11-13 10:34:00* Test Item Value Reference Range Interpretation Comments Platelet Count (test code = 777-3) 258 140-360 [facility] blood segmented neutrophil count as percentage of total dkgxnktrrm3782-96-48 10:34:00* Test Item Value Reference Range Interpretation Comments Neutrophils (%) (Auto) (test code = 50390-6) 68.7 38.7-80.0 [facility] HospitalAutom[facility] blood lymphocyte count as percentage ot total ewwcunmbmm8092-94-65 10:34:00* Test Item Value Reference Range Interpretation Comments Lymphocytes (%) (Auto) (test code = 736-9) 27.2 18.0-39.1 [facility] HospitalAutom[facility] blood monocyte count as percentage of total efizqwpojh2018-03-89 10:34:00* Test Item Value Reference Range Interpretation Comments Monocytes (%) (Auto) (test code = 5905-5) 3.7 4.4-11.3 [facility] HospitalAutom[facility] blood eosinophil count as percentage of total apdeeeecjz5328-10-37 10:34:00* Test Item Value Reference Range Interpretation Comments Eosinophils (%) (Auto) (test code = 713-8) 0.0 0.0-6.0 [facility] HospitalAutom[facility] blood basophil count as percentage of total brjojahrdy8183-39-05 10:34:00* Test Item Value Reference Range Interpretation Comments Basophils (%) (Auto) (test code = 706-2) 0.2 0.0-1.0 [facility] HospitalFluoroscopic procedure less than one hour zygtiexc7797-76-64 10:34:00* Test Item Value Reference Range Interpretation Comments IM GRANULOCYTES % (test code = IM GRANULOCYTES %) 0.2 0.0- 1.0 [facility] HospitalAutom[facility] blood neutrophil count 2019-11-13 10:34:00* Test Item Value Reference Range Interpretation Comments Neutrophils # (Auto) (test code = 751-8) 4.2 2.1-6.9 [facility] lymphocytes count (number/volume) 2019-11-13 10:34:00* Test Item Value Reference Range Interpretation Comments Lymphocytes # (Auto) (test code = 87294-0) 1.7 1.0-3.2 [facility] monocytes automated count (number/volume)2019-11-13 10:34:00* Test Item Value Reference Range Interpretation Comments Monocytes # (Auto) (test code = 742-7) 0.2 0.2-0.8 [facility] HospitalAutomated blood eosinophil count 2019-11-13 10:34:00* Test Item Value Reference Range Interpretation Comments Eosinophils # (Auto) (test code = 711-2) 0.0 0.0-0.4 [facility] HospitalAutomated blood basophil count (count/volume)2019-11-13 10:34:00* Test Item Value Reference Range Interpretation Comments Basophils # (Auto) (test code = 704-7) 0.0 0.0-0.1 [facility] HospitalFluoroscopic procedure less than one hour mqiwsnvp0693-83-41 10:34:00* Test Item Value Reference Range Interpretation Comments Absolute Immature Granulocyte (auto (conner t code = Absolute Immature Granulocyte (auto) 0.01 0-0.1 [facility] sodium [facility] (moles/volume)2019-11-13 10:34:00* Test Item Value Reference Range Interpretation Comments Sodium Level (test code = 2951-2) 143 136-145 [facility] potassium measurement (moles/volume)2019-11-13 10:34:00* Test Item Value Reference Range Interpretation Comments Potassium Level (test code = 2823-3) 3.7 3.5-5.1 [facility] chloride measurement (moles/volume)2019-11-13 10:34:00* Test Item Value Reference Range Interpretation Comments Chloride Level (test code = 2075-0) 106 98-107 [facility] carbon dioxide, total measurement (moles/volume)2019-11-13 10:34:00* Test Item Value Reference Range Interpretation Comments Carbon Dioxide Level (test code = 2028-9) 25 22-29 [facility] anion ilp0475-56-84 10:34:00* Test Item Value Reference Range Interpretation Comments Anion Gap (test code = 66920-5) 15.7 8-16 [facility] urea nitrogen measurement (mass/volume)2019-11-13 10:34:00* Test Item Value Reference Range Interpretation Comments Blood Urea Nitrogen (test code = 3094-0) 18 7-26 [facility] creatinine measurement (mass/volume)2019-11-13 10:34:00* Test Item Value Reference Range Interpretation Comments Creatinine (test code = 2160-0) 1.09 0.57-1.11 [facility] urea nitrogen/creatinine mass kzeow9432-48-28 10:34:00* Test Item Value Reference Range Interpretation Comments BUN/Creatinine Ratio (test code = 3097-3) 17 6-25 [facility] HospitalEstimated glomerular filtration rate (GFR) yvinvtlvifjjt6281-64-40 10:34:00* Test Item Value Reference Range Interpretation Comments Estimat Glomerular Filtration Rate (test code = 384104749) 51 >60 Ranges were taken from the National Kidney Disease Education Program and the [facility] literature.Reference ranges:60 or greater: Kzltno91-20 ( for 3 consecutive months): Chronic kidney disease 15 or less: Kidney failureWilbarger General HospitalGlucose ypbeywfftzf0347-23-46 10:34:00* Test Item Value Reference Range Interpretation Comments Glucose Level (test code = ZZZ1416) 106 74-118 [facility] calcium measurement (mass/volume)2019-11-13 10:34:00* Test Item Value Reference Range Interpretation Comments Calcium Level (test code = 62722-4) 8.9 8.4-10.2 [facility] magnesium measurement (mass/volume)2019-11-13 10:34:00* Test Item Value Reference Range Interpretation Comments Magnesium Level (test code = 61436-9) 1.8 1.3-2.1 [facility] total bilirubin measurement (mass/volume)2019-11-13 10:34:00* Test Item Value Reference Range Interpretation Comments Total Bilirubin (test code = 1975-2) 0.4 0.2-1.2 [facility] HospitalFluoroscopic procedure less than one hour syabvyze3719-63-71 10:34:00* Test Item Value Reference Range Interpretation Comments Aspartate Amino Transf (AST/SGOT) (test code = Aspartate Amino Transf (AST/SGOT)) 23 5-34 [facility] or plasma alanine aminotransferase measurement (enzymatic activity/volume)2019-11-13 10:34:00* Test Item Value Reference Range Interpretation Comments Alanine Aminotransferase (ALT/SGPT) (test code = 1742-6) 27 0-55 [facility] protein measurement (mass/volume)2019-11-13 10:34:00* Test Item Value Reference Range Interpretation Comments Total Protein (test code = 2885-2) 7.9 6.5-8.1 [facility] albumin measurement (mass/volume)2019-11-13 10:34:00* Test Item Value Reference Range Interpretation Comments Albumin (test code = 1751-7) 3.6 3.5-5.0 [facility] HospitalPlasma globulin measurement (mass/volume) 2019-11-13 10:34:00* Test Item Value Reference Range Interpretation Comments Globulin (test code = 66668-7) 4.3 2.3-3.5 [facility] albumin/globulin mass crplm9000-87-29 10:34:00* Test Item Value Reference Range Interpretation Comments Albumin/Globulin Ratio (test code = 1759-0) 0.8 0.8-2.0 [facility] alkaline phosphatase measurement (enzymatic activity/volume)2019-11-13 10:34:00* Test Item Value Reference Range Interpretation Comments Alkaline Phosphatase (test code = 6768-6) 68 40-150 [facility] plasma creatine kinase measurement (enzymatic activity/volume)2019-11-13 10:34:00* Test Item Value Reference Range Interpretation Comments Creatine Kinase (test code = 2157-6) 68 29-168 [facility] plasma creatine kinase MB measurement (mass/volume)2019-11-13 10:34:00* Test Item Value Reference Range Interpretation Comments Creatine Kinase MB (test code = 94194-2) 0.60 0-5.0 [facility] HospitalTroponin I measurement by highly sensitive enzyme skwwrauboci0055-08-16 10:34:00* Test Item Value Reference Range Interpretation Comments Troponin I (test code = 93629-2) 0.025 0-0.300 [facility] HospitalBlood leukocytes automated count (number/volume)2019-11-13 10:34:00* Test Item Value Reference Range Interpretation Comments White Blood Count (test code = 6690-2) 6.14 4.8-10.8 [facility] HospitalBl[facility] [place] erythrocytes automated count (number/volume)2019-11-13 10:34:00* Test Item Value Reference Range Interpretation Comments Red Blood Count (test code = 789-8) 4.47 3.6-5.1 [facility] HospitalBlood hemoglobin measurement (moles/volume)2019-11-13 10:34:00* Test Item Value Reference Range Interpretation Comments Hemoglobin (test code = 02305-1) 13.2 12.0-16.0 [facility] HospitalAutomated blood hematocrit (volume fraction)2019-11-13 10:34:00* Test Item Value Reference Range Interpretation Comments Hematocrit (test code = 4544-3) 40.8 34.2-44.1 [facility] HospitalAutomated erythrocyte mean corpuscular nclkrd4515-61-48 10:34:00* Test Item Value Reference Range Interpretation Comments Mean Corpuscular Volume (test code = 787-2) 91.3 81-99 [facility] HospitalAutomated erythrocyte mean corpuscular hemoglobin (mass per erythrocyte)2019-11-13 10:34:00* Test Item Value Reference Range Interpretation Comments Mean Corpuscular Hemoglobin (test code = 785-6) 29.5 28-32 [facility] HospitalAutomated erythrocyte mean corpuscular hemoglobin concentration measurement (mass/volume)2019-11-13 10:34:00* Test Item Value Reference Range Interpretation Comments Mean Corpuscular Hemoglobin Concent (test code = 786-4) 32.4 31-35 [facility] HospitalRDW DawNr-Nxm0654-72-02 10:34:00* Test Item Value Reference Range Interpretation Comments Red Cell Distribution Width (test code = 43329-4) 12.5 11.7 -14.4 [facility] HospitalAutomated blood platelet count (count/volume)2019-11-13 10:34:00* Test Item Value Reference Range Interpretation Comments Platelet Count (test code = 777-3) 258 140-360 [facility] HospitalAutomated blood segmented neutrophil count as percentage of total mkxksykolx2493-08-94 10:34:00* Test Item Value Reference Range Interpretation Comments Neutrophils (%) (Auto) (test code = 14939-5) 68.7 38.7-80.0 [facility] HospitalAutomated blood lymphocyte count as percentage ot total igbcbaipuw9428-04-19 10:34:00* Test Item Value Reference Range Interpretation Comments Lymphocytes (%) (Auto) (test code = 736-9) 27.2 18.0-39.1 [facility] HospitalAutomated blood monocyte count as percentage of total ekwmabfhgh6422-48-18 10:34:00* Test Item Value Reference Range Interpretation Comments Monocytes (%) (Auto) (test code = 5905-5) 3.7 4.4-11.3 [facility] HospitalAutnorthern regional hospitaled blood eosinophil count as percentage of total dbyydcotqf4730-65-38 10:34:00* Test Item Value Reference Range Interpretation Comments Eosinophils (%) (Auto) (test code = 713-8) 0.0 0.0-6.0 [facility] HospitalAutomated blood basophil count as percentage of total wnsvrifgtm5569-75-71 10:34:00* Test Item Value Reference Range Interpretation Comments Basophils (%) (Auto) (test code = 706-2) 0.2 0.0-1.0 [facility] HospitalFluoroscopic procedure less than one hour byhycvmc9846-57-26 10:34:00* Test Item Value Reference Range Interpretation Comments IM GRANULOCYTES % (test code = IM GRANULOCYTES %) 0.2 0.0- 1.0 [facility] HospitalAutomated blood neutrophil count 2019-11-13 10:34:00* Test Item Value Reference Range Interpretation Comments Neutrophils # (Auto) (test code = 751-8) 4.2 2.1-6.9 [facility] HospitalBlood lymphocytes count (number/volume) 2019-11-13 10:34:00* Test Item Value Reference Range Interpretation Comments Lymphocytes # (Auto) (test code = 78815-6) 1.7 1.0-3.2 [facility] HospitalBlood monocytes automated count (number/volume)2019-11-13 10:34:00* Test Item Value Reference Range Interpretation Comments Monocytes # (Auto) (test code = 742-7) 0.2 0.2-0.8 [facility] HospitalAutomated blood eosinophil count 2019-11-13 10:34:00* Test Item Value Reference Range Interpretation Comments Eosinophils # (Auto) (test code = 711-2) 0.0 0.0-0.4 [facility] HospitalAutomated blood basophil count (count/volume)2019-11-13 10:34:00* Test Item Value Reference Range Interpretation Comments Basophils # (Auto) (test code = 704-7) 0.0 0.0-0.1 [facility] HospitalFluoroscopic procedure less than one hour nolzarsd3605-88-14 10:34:00* Test Item Value Reference Range Interpretation Comments Absolute Immature Granulocyte (auto (conner t code = Absolute Immature Granulocyte (auto) 0.01 0-0.1 [facility] sodium measurement (moles/volume)2019-11-13 10:34:00* Test Item Value Reference Range Interpretation Comments Sodium Level (test code = 2951-2) 143 136-145 [facility] plasma potassium measurement (moles/volume)2019-11-13 10:34:00* Test Item Value Reference Range Interpretation Comments Potassium Level (test code = 2823-3) 3.7 3.5-5.1 [facility] plasma chloride measurement (moles/volume)2019-11-13 10:34:00* Test Item Value Reference Range Interpretation Comments Chloride Level (test code = 2075-0) 106 98-107 [facility] plasma carbon dioxide, total measurement (moles/volume)2019-11-13 10:34:00* Test Item Value Reference Range Interpretation Comments Carbon Dioxide Level (test code = 2028-9) 25 22-29 [facility] or plasma anion aua8964-46-00 10:34:00* Test Item Value Reference Range Interpretation Comments Anion Gap (test code = 79777-0) 15.7 8-16 [facility] plasma urea nitrogen measurement (mass/volume)2019-11-13 10:34:00* Test Item Value Reference Range Interpretation Comments Blood Urea Nitrogen (test code = 3094-0) 18 7-26 [facility]ere[facility] plasma creatinine measurement (mass/volume)2019-11-13 10:34:00* Test Item Value Reference Range Interpretation Comments Creatinine (test code = 2160-0) 1.09 0.57-1.11 [facility] plasma urea nitrogen/creatinine mass dqpvz2988-69-93 10:34:00* Test Item Value Reference Range Interpretation Comments BUN/Creatinine Ratio (test code = 3097-3) 17 6-25 [facility] HospitalEstimated glomerular filtration rate (GFR) bufdudsjexkhw7334-35-51 10:34:00* Test Item Value Reference Range Interpretation Comments Estimat Glomerular Filtration Rate (test code = 713464817) 51 >60 Ranges were taken from the National Kidney Disease Education Program and the [facility] Foundation literature.Reference ranges:60 or greater: Nolouz67-31 ( for 3 consecutive months): Chronic kidney disease 15 or less: Kidney failureWilbarger General HospitalGlucose yzgpyximylb9925-94-49 10:34:00* Test Item Value Reference Range Interpretation Comments Glucose Level (test code = NZH6050) 106 74-118 [facility] calcium measurement (mass/volume)2019-11-13 10:34:00* Test Item Value Reference Range Interpretation Comments Calcium Level (test code = 43509-8) 8.9 8.4-10.2 [facility] magnesium measurement (mass/volume)2019-11-13 10:34:00* Test Item Value Reference Range Interpretation Comments Magnesium Level (test code = 41951-4) 1.8 1.3-2.1 [facility] plasma total bilirubin measurement (mass/volume)2019-11-13 10:34:00* Test Item Value Reference Range Interpretation Comments Total Bilirubin (test code = 1975-2) 0.4 0.2-1.2 [facility] HospitalFluoroscopic procedure less than one hour dwqemzca7330-84-09 10:34:00* Test Item Value Reference Range Interpretation Comments Aspartate Amino Transf (AST/SGOT) (test code = Aspartate Amino Transf (AST/SGOT)) 23 5-34 [facility] plasma alanine aminotransferase measurement (enzymatic activity/volume)2019-11-13 10:34:00* Test Item Value Reference Range Interpretation Comments Alanine Aminotransferase (ALT/SGPT) (test code = 1742-6) 27 0-55 [facility] protein measurement (mass/volume)2019-11-13 10:34:00* Test Item Value Reference Range Interpretation Comments Total Protein (test code = 2885-2) 7.9 6.5-8.1 [facility] albumin measurement (mass/volume)2019-11-13 10:34:00* Test Item Value Reference Range Interpretation Comments Albumin (test code = 1751-7) 3.6 3.5-5.0 [facility] HospitalPlasma globulin measurement (mass/volume) 2019-11-13 10:34:00* Test Item Value Reference Range Interpretation Comments Globulin (test code = 40059-5) 4.3 2.3-3.5 [facility] albumin/globulin mass flydq1695-92-38 10:34:00* Test Item Value Reference Range Interpretation Comments Albumin/Globulin Ratio (test code = 1759-0) 0.8 0.8-2.0 [facility] plasma alkaline phosphatase measurement (enzymatic activity/volume)2019-11-13 10:34:00* Test Item Value Reference Range Interpretation Comments Alkaline Phosphatase (test code = 6768-6) 68 40-150 [facility] or plasma creatine kinase measurement (enzymatic activity/volume)2019-11-13 10:34:00* Test Item Value Reference Range Interpretation Comments Creatine Kinase (test code = 2157-6) 68 29-168 [facility] plasma creatine kinase MB measurement (mass/volume)2019-11-13 10:34:00* Test Item Value Reference Range Interpretation Comments Creatine Kinase MB (test code = 15291-0) 0.60 0-5.0 [facility] HospitalTroponin I measurement by highly sensitive enzyme ajsimbvviay8264-01-52 10:34:00* Test Item Value Reference Range Interpretation Comments Troponin I (test code = 07077-4) 0.025 0-0.300 [facility]CHE[facility])2019-11-08 23:21:00 [facility] [address] [address] Patient Name: EMILI CHATMAN MR #: [id number] : 1960 Age/Sex: 59/F Req #: [id number] Adm Physician: Ordered by: MARTY KEYS MD Report #: [id number] Location: ER Room/Bed: Procedure: [id number] DX/CHES T SINGLE (PORTABLE) Exam Date: 11/08/19 [...] 11:24 PM Dictated By: TIESHA STRANGE MD [id number] Transcribed By: MEGA on 11/08/19 7333 COPY TO: MARTY KEYS MD Blood leukocytes automated count (number/volume)2019-11-08 22:06:00* Test Item Value Reference Range Interpretation Comments White Blood Count (test code = 6690-2) 5.46 4.8-10.8 [facility] HospitalBlood erythrocytes automated count (number/volume)2019-11-08 22:06:00* Test Item Value Reference Range Interpretation Comments Red Blood Count (test code = 789-8) 4.36 3.6-5.1 [facility] HospitalBlood hemoglobin measurement (moles/volume)2019-11-08 22:06:00* Test Item Value Reference Range Interpretation Comments Hemoglobin (test code = 62272-8) 13.2 12.0-16.0 [facility] hematocrit (volume fraction)2019-11-08 22:06:00* Test Item Value Reference Range Interpretation Comments Hematocrit (test code = 4544-3) 39.6 34.2-44.1 [facility]Autom[facility] erythrocyte mean corpuscular [id number] 22:06:00* Test Item Value Reference Range Interpretation Comments Mean Corpuscular Volume (test code = 787-2) 90.8 81-99 [facility]Autom[facility] mean corpuscular hemoglobin (mass per erythrocyte)2019-11-08 22:06:00* Test Item Value Reference Range Interpretation Comments Mean Corpuscular Hemoglobin (test code = 785-6) 30.3 28-32 [facility]Autom[facility] mean corpuscular hemoglobin concentration measurement (mass/volume)2019-11-08 22:06:00* Test Item Value Reference Range Interpretation Comments Mean Corpuscular Hemoglobin Concent (test code = 786-4) 33.3 31-35 [facility] HospitalRDW [id number] 22:06:00* Test Item Value Reference Range Interpretation Comments Red Cell Distribution Width (test code = 29494-0) 12.4 11.7 -14.4 [facility]Autom[facility] platelet count (count/volume)2019-11-08 22:06:00* Test Item Value Reference Range Interpretation Comments Platelet Count (test code = 777-3) 277 140-360 [facility]Autom[facility] blood segmented neutrophil count as percentage of total [id number] 22:06:00* Test Item Value Reference Range Interpretation Comments Neutrophils (%) (Auto) (test code = 57162-3) 63.9 38.7-80.0 [facility]Autom[facility] lymphocyte count as percentage ot total [id number] 22:06:00* Test Item Value Reference Range Interpretation Comments Lymphocytes (%) (Auto) (test code = 736-9) 28.9 18.0-39.1 [facility]Autom[facility] blood monocyte count as percentage of total [id number] 22:06:00* Test Item Value Reference Range Interpretation Comments Monocytes (%) (Auto) (test code = 5905-5) 6.4 4.4-11.3 [facility]Autom[facility] blood eosinophil count as percentage of total [id number] 22:06:00* Test Item Value Reference Range Interpretation Comments Eosinophils (%) (Auto) (test code = 713-8) 0.4 0.0-6.0 [facility]Autom[facility] blood basophil count as percentage of total rbkuixgptg0247-14-24 22:06:00* Test Item Value Reference Range Interpretation Comments Basophils (%) (Auto) (test code = 706-2) 0.2 0.0-1.0 [facility] HospitalFluoroscopic procedure less than one hour [id number] 22:06:00* Test Item Value Reference Range Interpretation Comments IM GRANULOCYTES % (test code = IM GRANULOCYTES %) 0.2 0.0- 1.0 [facility] HospitalAutom[facility] blood neutrophil count 2019-11-08 22:06:00* Test Item Value Reference Range Interpretation Comments Neutrophils # (Auto) (test code = 751-8) 3.5 2.1-6.9 [facility] HospitalBlood lymphocytes count (number/volume) 2019-11-08 22:06:00* Test Item Value Reference Range Interpretation Comments Lymphocytes # (Auto) (test code = 31813-8) 1.6 1.0-3.2 [facility] HospitalBlood monocytes automated count (number/volume)2019-11-08 22:06:00* Test Item Value Reference Range Interpretation Comments Monocytes # (Auto) (test code = 742-7) 0.4 0.2-0.8 [facility] HospitalAutom[facility] blood eosinophil count 2019-11-08 22:06:00* Test Item Value Reference Range Interpretation Comments Eosinophils # (Auto) (test code = 711-2) 0.0 0.0-0.4 [facility] HospitalAutomated blood basophil count (count/volume)2019-11-08 22:06:00* Test Item Value Reference Range Interpretation Comments Basophils # (Auto) (test code = 704-7) 0.0 0.0-0.1 [facility] HospitalFluoroscopic procedure less than one hour [id number] 22:06:00* Test Item Value Reference Range Interpretation Comments Absolute Immature Granulocyte (auto (conner t code = Absolute Immature Granulocyte (auto) 0.01 0-0.1 [facility] ([facility]/volume)2019-11-08 22:06:00* Test Item Value Reference Range Interpretation Comments Sodium Level (test code = 2951-2) 143 136-145 [facility] potassium measurement (moles/volume)2019-11-08 22:06:00* Test Item Value Reference Range Interpretation Comments Potassium Level (test code = 2823-3) 3.5 3.5-5.1 [facility] chloride measurement (moles/volume)2019-11-08 22:06:00* Test Item Value Reference Range Interpretation Comments Chloride Level (test code = 2075-0) 108 98-107 [facility] carbon dioxide, total measurement (moles/volume)2019-11-08 22:06:00* Test Item Value Reference Range Interpretation Comments Carbon Dioxide Level (test code = 2028-9) 22 [facility] anion [id number] 22:06:00* Test Item Value Reference Range Interpretation Comments Anion Gap (test code = 88352-4) 16.5 8-16 [facility] urea nitrogen measurement (mass/volume)2019-11-08 22:06:00* Test Item Value Reference Range Interpretation Comments Blood Urea Nitrogen (test code = 3094-0) 16 7-26 [facility] creatinine measurement (mass/volume)2019-11-08 22:06:00* Test Item Value Reference Range Interpretation Comments Creatinine (test code = 2160-0) 1.11 0.57-1.11 [facility] urea nitrogen/creatinine mass [id number] 22:06:00* Test Item Value Reference Range Interpretation Comments BUN/Creatinine Ratio (test code = 3097-3) 14 - [facility] HospitalEstimated glomerular filtration rate (GFR) wdpydiyfepmpk3754-82-95 22:06:00* Test Item Value Reference Range Interpretation Comments Estimat Glomerular Filtration Rate (test code = 844465139) 50 >60 Ranges were taken from the National Kidney Disease Education Program and the [facility] literature.Reference ranges:60 or greater: Pwoxfn47-21 ( for 3 consecutive months): Chronic kidney disease 15 or less: Kidney failureWilbarger General HospitalGlucose jasjcckkdmk2507-59-85 22:06:00* Test Item Value Reference Range Interpretation Comments Glucose Level (test code = RHQ1236) 146 74-118 [facility] calcium measurement (mass/volume)2019-11-08 22:06:00* Test Item Value Reference Range Interpretation Comments Calcium Level (test code = 59586-0) 9.2 8.4-10.2 [facility] total bilirubin measurement (mass/volume)2019-11-08 22:06:00* Test Item Value Reference Range Interpretation Comments Total Bilirubin (test code = 1975-2) 0.3 0.2-1.2 [facility] HospitalFluoroscopic procedure less than one hour uuvpebpn4740-12-10 22:06:00* Test Item Value Reference Range Interpretation Comments Aspartate Amino Transf (AST/SGOT) (test code = Aspartate Amino Transf (AST/SGOT)) 36 5-34 [facility] alanine aminotransferase measurement (enzymatic activity/volume)2019-11-08 22:06:00* Test Item Value Reference Range Interpretation Comments Alanine Aminotransferase (ALT/SGPT) (test code = 1742-6) 47 0-55 [facility] protein measurement (mass/volume)2019-11-08 22:06:00* Test Item Value Reference Range Interpretation Comments Total Protein (test code = 2885-2) 8.0 6.5-8.1 [facility] albumin measurement (mass/volume)2019-11-08 22:06:00* Test Item Value Reference Range Interpretation Comments Albumin (test code = 1751-7) 3.8 3.5-5.0 [facility] HospitalPlasma globulin measurement (mass/volume) 2019-11-08 22:06:00* Test Item Value Reference Range Interpretation Comments Globulin (test code = 18377-5) 4.2 2.3-3.5 [facility] albumin/globulin mass zxugl5270-99-08 22:06:00* Test Item Value Reference Range Interpretation Comments Albumin/Globulin Ratio (test code = 1759-0) 0.9 0.8-2.0 [facility] alkaline phosphatase measurement (enzymatic activity/volume)2019-11-08 22:06:00* Test Item Value Reference Range Interpretation Comments Alkaline Phosphatase (test code = 6768-6) 86 40-150 [facility] creatine kinase measurement (enzymatic activity/volume)2019-11-08 22:06:00* Test Item Value Reference Range Interpretation Comments Creatine Kinase (test code = 2157-6) 56 29-168 [facility] creatine kinase MB measurement (mass/volume)2019-11-08 22:06:00* Test Item Value Reference Range Interpretation Comments Creatine Kinase MB (test code = 59752-0) 0.40 0-5.0 [facility] HospitalTroponin I measurement by highly sensitive enzyme vslhajdxscc3594-69-26 22:06:00* Test Item Value Reference Range Interpretation Comments Troponin I (test code = 91620-0) < 0.001 0-0.300 [facility]
--- OUTSIDE RECORDS SUMMARY | 2019-11-18 18:17 | XMS REPORT | Continuity of Care Document ---
Author Author [facility] t Organization [facility] Address [address] [place] [address] Dr. Jimenez [address] [place] [address] Phone Unavailable Care Team Providers Care Supervisor Frame Assembly Name Role Phone MD RITA HOOVER PCP John HOLCOMB Attphys Unavailable Killian NUÑEZ Attphys Unavailable Laura KEYS Attphys Unavailable Payers Payer Name Policy Type Policy Number Effective Date Expiration Date [facility] [id number] 2011 00:00:00 [facility] Problems Condition Name Condition Details Condition Category Status Onset Date Resolution Date Last Treatment Date Treating Clinician Comments Source Pneumonia Problem Active [facility] Suspected severe acute respiratory syndr ome coronavirus 2 (SARS-CoV-2) infection Problem Active [facility] Fever Problem Active [facility] Infection due to severe acute respiratory syndrome coronavir us 2 (SARS-CoV-2) Problem Active [facility] Allergies, Adverse Reactions, Alerts Allergy Name Allergy Type Status Severity Reaction(s) Onset Date Inacti ve Date Treating Clinician Comments Source Penicillin Allergy to substance Active Severe 2019-11-13 00:00:00 [facility] Penicillin Allergy to substance Active Moderate 2019-11-08 00:00:0 0 [facility] PCN Allergy to substance Active Severe ANAPHYLAXIS 2016-04-27 00:00:00 [facility] Social History Social Habit Start Date Stop Date Quantity Comments Source Sex Assigned At 1960 00:00:00 1960 00:00:00 Female [facility] Medications Ordered Medication Name Filled Medication Name Start Date Stop Da te Current Medication? Ordering Clinician Indication Dosage Frequency Signature (SIG) Comments Components Source Cholecalciferol (Vitamin D3) (Vitamin D) 1,000 Unit TA BLET Cholecalciferol (Vitamin D3) (Vitamin D) 1,000 Unit TABLET Yes 1000 Daily [facility] Azithromycin (Z-Kobe) 250 Mg TABLET Azithromycin (Z-Kobe) 250 Mg T ABLET 2016-07-03 00:00:00 No 250 Use As Directed [facility] Vital Signs Vital Name Observation Time Observation Value Comments Source BMI (Body Mass Index) 2019-11-14 22:23:00 35.4 kg/m2 [facility] Weight 2019-11-14 22:21:00 226 [lb_av] [facility] Weight 2019-11-13 10:00:00 226 [lb_av] [facility] BMI (Body Mass Index) 2019-11-13 10:00:00 35.4 kg/m2 [facility] Body Temperature 2019-11-08 23:46:00 99.7 [degF] [facility] Procedures This patient has no known procedures. Plan of Care Planned Activity Planned Date Details Comments Source Instructions COVID-19: 06/27/2019 [facility] Instructions Fever - Adult [facility] Instructions Pneumonia - Viral [facility] Instructions COVID-19: 06/27/2019 [facility] Encounters Start Date/Time End Date/Time Encounter Type Admission Type [facility] Care Department Encounter ID Source 2019-11-14 22:21:00 2019-11-14 23:35:00 Departed Emergency Room [facility] [id number] [facility] dical Rowley 2019-11-13 10:22:00 2019-11-13 13:57:00 Departed Emergency Room 1 JOAQUIN NARESHMARK [facility] [id number] [facility] 2019-11-08 22:00:00 2019-11-08 23:56:00 Departed Emergency Room MARTY KEYS [facility] [id number] I [facility] Results Test Description Test Time Test Comments Results Result Comments Source CHEST SINGLE (PORTABLE) 2019-11-18 16:53:00 [place] [address] Patient Name: MERE CHATMAN MR #: [id number] : 1960 Age/Sex: 59/F Req #: [id number] Adm Physician: Ordered by: JENELLE HOLCOMB DO Report #: [id number] Location: ER Room/Bed: Procedure: [id number] DX/CHEST SINGLE (PORTABLE) Exam Date: 11/18/19 Exam [...] HOLCOMB DO CHEST SINGLE (PORTABLE) 2019-11-13 13:14:00 [place] [address] Patient Name: MERE CHATMAN MR #: [id number] : 1960 Age/Sex: 59/F Req #: [id number] Adm Physician: Ordered by: SURENDRA NUÑEZ MD Report #: [id number] Location: ER Room/Bed: Procedure: [id number] DX/CHEST SINGLE (PORTABLE) Exam Date: 11/13/19 Exam [...] Count (test code = 6690-2) 6.14 4.8-10.8 [facility] automated count (number/volume)2019-11-13 10:34:00* Test Item Value Reference Range Interpretation Comments Red Blood Count (test code = 789-8) 4.47 3.6-5.1 [facility] hemoglobin measurement (moles/volume)2019-11-13 10:34:00* Test Item Value Reference Range Interpretation Comments Hemoglobin (test code = 92845-5) 13.2 12.0-16.0 [facility] CenterAutomated blood hematocrit (volume fraction)2019-11-13 10:34:00* Test Item Value Reference Range Interpretation Comments Hematocrit (test code = 4544-3) 40.8 34.2-44.1 [facility] CenterAutomated erythrocyte mean corpuscular opynzc2739-19-01 10:34:00* Test Item Value Reference Range Interpretation Comments Mean Corpuscular Volume (test code = 787-2) 91.3 81-99 [facility] CenterAutomated erythrocyte mean corpuscular hemoglobin (mass per erythrocyte)2019-11-13 10:34:00* Test Item Value Reference Range Interpretation Comments Mean Corpuscular Hemoglobin (test code = 785-6) 29.5 28-32 [facility] CenterAutomated erythrocyte mean corpuscular hemoglobin concentration measurement (mass/volume)2019-11-13 10:34:00* Test Item Value Reference Range Interpretation Comments Mean Corpuscular Hemoglobin Concent (test code = 786-4) 32.4 31-35 [facility] CenterRDW CigDl-Lvm1452-25-02 10:34:00* Test Item Value Reference Range Interpretation Comments Red Cell Distribution Width (test code = 52902-4) 12.5 11.7 -14.4 [facility] CenterAutomated blood platelet count (count/volume)2019-11-13 10:34:00* Test Item Value Reference Range Interpretation Comments Platelet Count (test code = 777-3) 258 140-360 [facility] neutrophil count as percentage of total kopgbhblyx7867-06-62 10:34:00* Test Item Value Reference Range Interpretation Comments Neutrophils (%) (Auto) (test code = 81425-5) 68.7 38.7-80.0 [facility] CenterAutomated blood lymphocyte count as percentage ot total wgkczexxpo4719-24-72 10:34:00* Test Item Value Reference Range Interpretation Comments Lymphocytes (%) (Auto) (test code = 736-9) 27.2 18.0-39.1 [facility] CenterAutomated blood monocyte count as percentage of total lxgczhpcxw3641-85-89 10:34:00* Test Item Value Reference Range Interpretation Comments Monocytes (%) (Auto) (test code = 5905-5) 3.7 4.4-11.3 [facility] CenterAutomated blood eosinophil count as percentage of total ypqwpixxpp6224-12-44 10:34:00* Test Item Value Reference Range Interpretation Comments Eosinophils (%) (Auto) (test code = 713-8) 0.0 0.0-6.0 [facility] CenterAutomated blood basophil count as percentage of total evhnzpxney3025-14-75 10:34:00* Test Item Value Reference Range Interpretation Comments Basophils (%) (Auto) (test code = 706-2) 0.2 0.0-1.0 [facility] CenterFluoroscopic procedure less than one hour fsbcftio9609-38-53 10:34:00* Test Item Value Reference Range Interpretation Comments IM GRANULOCYTES % (test code = IM GRANULOCYTES %) 0.2 0.0- 1.0 [facility] CenterAutomated blood neutrophil count 2019-11-13 10:34:00* Test Item Value Reference Range Interpretation Comments Neutrophils # (Auto) (test code = 751-8) 4.2 2.1-6.9 [facility] CenterBlood lymphocytes count (number/volume) 2019-11-13 10:34:00* Test Item Value Reference Range Interpretation Comments Lymphocytes # (Auto) (test code = 61038-9) 1.7 1.0-3.2 [facility] CenterBlood monocytes automated count (number/volume)2019-11-13 10:34:00* Test Item Value Reference Range Interpretation Comments Monocytes # (Auto) (test code = 742-7) 0.2 0.2-0.8 [facility] CenterAutomated blood eosinophil count 2019-11-13 10:34:00* Test Item Value Reference Range Interpretation Comments Eosinophils # (Auto) (test code = 711-2) 0.0 0.0-0.4 [facility] CenterAutomated blood basophil count (count/volume)2019-11-13 10:34:00* Test Item Value Reference Range Interpretation Comments Basophils # (Auto) (test code = 704-7) 0.0 0.0-0.1 [facility] CenterFluoroscopic procedure less than one hour uuqpucwf1461-69-83 10:34:00* Test Item Value Reference Range Interpretation Comments Absolute Immature Granulocyte (auto (conner t code = Absolute Immature Granulocyte (auto) 0.01 0-0.1 [facility] sodium measurement (moles/volume)2019-11-13 10:34:00* Test Item Value Reference Range Interpretation Comments Sodium Level (test code = 2951-2) 143 136-145 [facility] Hospitalerum or plasma potassium measurement (moles/volume)2019-11-13 10:34:00* Test Item Value Reference Range Interpretation Comments Potassium Level (test code = 2823-3) 3.7 3.5-5.1 [facility] Hospitalerum or plasma chloride measurement (moles/volume)2019-11-13 10:34:00* Test Item Value Reference Range Interpretation Comments Chloride Level (test code = 2075-0) 106 98-107 [facility] Hospitalerum or plasma carbon dioxide, total measurement (moles/volume)2019-11-13 10:34:00* Test Item Value Reference Range Interpretation Comments Carbon Dioxide Level (test code = 2028-9) 25 22-29 [facility] Hospitalerum or plasma anion ade1154-41-87 10:34:00* Test Item Value Reference Range Interpretation Comments Anion Gap (test code = 87486-4) 15.7 8-16 [facility] Hospitalerum or plasma urea nitrogen measurement (mass/volume)2019-11-13 10:34:00* Test Item Value Reference Range Interpretation Comments Blood Urea Nitrogen (test code = 3094-0) 18 7-26 [facility] Hospitalerum or plasma creatinine measurement (mass/volume)2019-11-13 10:34:00* Test Item Value Reference Range Interpretation Comments Creatinine (test code = 2160-0) 1.09 0.57-1.11 [facility] Hospitalerum or plasma urea nitrogen/creatinine mass oujte7309-27-28 10:34:00* Test Item Value Reference Range Interpretation Comments BUN/Creatinine Ratio (test code = 3097-3) 17 6-25 [facility] CenterEstimated glomerular filtration rate (GFR) tvmcnpsrunbnu2536-25-06 10:34:00* Test Item Value Reference Range Interpretation Comments Estimat Glomerular Filtration Rate (test code = 844296741) 51 >60 Ranges were taken from the National Kidney Disease Education Program and the [facility] Foundation literature.Reference ranges:60 or greater: Cawrkb26-41 ( for 3 consecutive months): Chronic kidney disease 15 or less: Kidney failureMatagorda Regional Medical CenterGlucose vognhljximl1444-42-86 10:34:00* Test Item Value Reference Range Interpretation Comments Glucose Level (test code = JOJ3092) 106 74-118 [facility] Hospitalerum or plasma calcium measurement (mass/volume)2019-11-13 10:34:00* Test Item Value Reference Range Interpretation Comments Calcium Level (test code = 44160-4) 8.9 8.4-10.2 [facility] Hospitalerum or plasma magnesium measurement (mass/volume)2019-11-13 10:34:00* Test Item Value Reference Range Interpretation Comments Magnesium Level (test code = 59135-1) 1.8 1.3-2.1 [facility] Hospitalerum or plasma total bilirubin measurement (mass/volume)2019-11-13 10:34:00* Test Item Value Reference Range Interpretation Comments Total Bilirubin (test code = 1975-2) 0.4 0.2-1.2 [facility] CenterFluoroscopic procedure less than one hour dsdcddms9895-05-97 10:34:00* Test Item Value Reference Range Interpretation Comments Aspartate Amino Transf (AST/SGOT) (test code = Aspartate Amino Transf (AST/SGOT)) 23 5-34 [facility] Hospitalerum or plasma alanine aminotransferase measurement (enzymatic activity/volume)2019-11-13 10:34:00* Test Item Value Reference Range Interpretation Comments Alanine Aminotransferase (ALT/SGPT) (test code = 1742-6) 27 0-55 [facility] Hospitalerum or plasma protein measurement (mass/volume)2019-11-13 10:34:00* Test Item Value Reference Range Interpretation Comments Total Protein (test code = 2885-2) 7.9 6.5-8.1 [facility] Hospitalerum or plasma albumin measurement (mass/volume)2019-11-13 10:34:00* Test Item Value Reference Range Interpretation Comments Albumin (test code = 1751-7) 3.6 3.5-5.0 [facility] CenterPlasma globulin measurement (mass/volume) 2019-11-13 10:34:00* Test Item Value Reference Range Interpretation Comments Globulin (test code = 08680-2) 4.3 2.3-3.5 [facility] Hospitalerum or plasma albumin/globulin mass olkgn3294-31-66 10:34:00* Test Item Value Reference Range Interpretation Comments Albumin/Globulin Ratio (test code = 1759-0) 0.8 0.8-2.0 [facility] Hospitalerum or plasma alkaline phosphatase measurement (enzymatic activity/volume)2019-11-13 10:34:00* Test Item Value Reference Range Interpretation Comments Alkaline Phosphatase (test code = 6768-6) 68 40-150 [facility] Hospitalerum or plasma creatine kinase measurement (enzymatic activity/volume)2019-11-13 10:34:00* Test Item Value Reference Range Interpretation Comments Creatine Kinase (test code = 2157-6) 68 29-168 [facility] Hospitalerum or plasma creatine kinase MB measurement (mass/volume)2019-11-13 10:34:00* Test Item Value Reference Range Interpretation Comments Creatine Kinase MB (test code = 07482-9) 0.60 0-5.0 [facility] CenterTroponin I measurement by highly sensitive enzyme wqxnmxvvqlu2456-14-59 10:34:00* Test Item Value Reference Range Interpretation Comments Troponin I (test code = 27672-0) 0.025 0-0.300 [facility] CenterBlood leukocytes automated count (number/volume)2019-11-13 10:34:00* Test Item Value Reference Range Interpretation Comments White Blood Count (test code = 6690-2) 6.14 4.8-10.8 [facility] CenterBlst. [facility] erythrocytes automated count (number/volume)2019-11-13 10:34:00* Test Item Value Reference Range Interpretation Comments Red Blood Count (test code = 789-8) 4.47 3.6-5.1 [facility] CenterBlood hemoglobin measurement (moles/volume)2019-11-13 10:34:00* Test Item Value Reference Range Interpretation Comments Hemoglobin (test code = 47667-0) 13.2 12.0-16.0 [facility] CenterAutomated blood hematocrit (volume fraction)2019-11-13 10:34:00* Test Item Value Reference Range Interpretation Comments Hematocrit (test code = 4544-3) 40.8 34.2-44.1 [facility] CenterAutomated erythrocyte mean corpuscular fqstdy3781-47-21 10:34:00* Test Item Value Reference Range Interpretation Comments Mean Corpuscular Volume (test code = 787-2) 91.3 81-99 [facility] CenterAutomated erythrocyte mean corpuscular hemoglobin (mass per erythrocyte)2019-11-13 10:34:00* Test Item Value Reference Range Interpretation Comments Mean Corpuscular Hemoglobin (test code = 785-6) 29.5 28-32 [facility] CenterAutomated erythrocyte mean corpuscular hemoglobin concentration measurement (mass/volume)2019-11-13 10:34:00* Test Item Value Reference Range Interpretation Comments Mean Corpuscular Hemoglobin Concent (test code = 786-4) 32.4 31-35 [facility] CenterRDW EpyNa-Kvk1397-82-02 10:34:00* Test Item Value Reference Range Interpretation Comments Red Cell Distribution Width (test code = 85399-4) 12.5 11.7 -14.4 [facility] CenterAutomated blood platelet count (count/volume)2019-11-13 10:34:00* Test Item Value Reference Range Interpretation Comments Platelet Count (test code = 777-3) 258 140-360 [facility] CenterAutomated blood segmented neutrophil count as percentage of total iaqmgxqebo4816-94-17 10:34:00* Test Item Value Reference Range Interpretation Comments Neutrophils (%) (Auto) (test code = 80211-7) 68.7 38.7-80.0 [facility] CenterAutomated blood lymphocyte count as percentage ot total xdsonlaweh8329-12-69 10:34:00* Test Item Value Reference Range Interpretation Comments Lymphocytes (%) (Auto) (test code = 736-9) 27.2 18.0-39.1 [facility] CenterAutomated blood monocyte count as percentage of total gnqrsgyqdc0008-16-15 10:34:00* Test Item Value Reference Range Interpretation Comments Monocytes (%) (Auto) (test code = 5905-5) 3.7 4.4-11.3 [facility] CenterAutcaromont healthed blood eosinophil count as percentage of total jmhffchlag4078-97-02 10:34:00* Test Item Value Reference Range Interpretation Comments Eosinophils (%) (Auto) (test code = 713-8) 0.0 0.0-6.0 [facility] CenterAutomated blood basophil count as percentage of total ovzzhxencv9707-88-72 10:34:00* Test Item Value Reference Range Interpretation Comments Basophils (%) (Auto) (test code = 706-2) 0.2 0.0-1.0 [facility] CenterFluoroscopic procedure less than one hour fcvxcufw2382-75-32 10:34:00* Test Item Value Reference Range Interpretation Comments IM GRANULOCYTES % (test code = IM GRANULOCYTES %) 0.2 0.0- 1.0 [facility] CenterAutomated blood neutrophil count 2019-11-13 10:34:00* Test Item Value Reference Range Interpretation Comments Neutrophils # (Auto) (test code = 751-8) 4.2 2.1-6.9 [facility] CenterBlood lymphocytes count (number/volume) 2019-11-13 10:34:00* Test Item Value Reference Range Interpretation Comments Lymphocytes # (Auto) (test code = 93713-8) 1.7 1.0-3.2 [facility] CenterBlood monocytes automated count (number/volume)2019-11-13 10:34:00* Test Item Value Reference Range Interpretation Comments Monocytes # (Auto) (test code = 742-7) 0.2 0.2-0.8 [facility] CenterAutomated blood eosinophil count 2019-11-13 10:34:00* Test Item Value Reference Range Interpretation Comments Eosinophils # (Auto) (test code = 711-2) 0.0 0.0-0.4 [facility] CenterAutomated blood basophil count (count/volume)2019-11-13 10:34:00* Test Item Value Reference Range Interpretation Comments Basophils # (Auto) (test code = 704-7) 0.0 0.0-0.1 [facility] CenterFluoroscopic procedure less than one hour slsbccxk3844-37-05 10:34:00* Test Item Value Reference Range Interpretation Comments Absolute Immature Granulocyte (auto (conner t code = Absolute Immature Granulocyte (auto) 0.01 0-0.1 [facility] Hospitalerum or plasma sodium measurement (moles/volume)2019-11-13 10:34:00* Test Item Value Reference Range Interpretation Comments Sodium Level (test code = 2951-2) 143 136-145 [facility] Hospitalerum or plasma potassium measurement (moles/volume)2019-11-13 10:34:00* Test Item Value Reference Range Interpretation Comments Potassium Level (test code = 2823-3) 3.7 3.5-5.1 [facility] Hospitalerum or plasma chloride measurement (moles/volume)2019-11-13 10:34:00* Test Item Value Reference Range Interpretation Comments Chloride Level (test code = 2075-0) 106 98-107 [facility] Hospitalerum or plasma carbon dioxide, total measurement (moles/volume)2019-11-13 10:34:00* Test Item Value Reference Range Interpretation Comments Carbon Dioxide Level (test code = 2028-9) 25 22-29 [facility] Hospitalerum or plasma anion nby1135-44-28 10:34:00* Test Item Value Reference Range Interpretation Comments Anion Gap (test code = 29966-6) 15.7 8-16 [facility] Hospitalerum or plasma urea nitrogen measurement (mass/volume)2019-11-13 10:34:00* Test Item Value Reference Range Interpretation Comments Blood Urea Nitrogen (test code = 3094-0) 18 7-26 [facility] Hospitalerum or plasma creatinine measurement (mass/volume)2019-11-13 10:34:00* Test Item Value Reference Range Interpretation Comments Creatinine (test code = 2160-0) 1.09 0.57-1.11 [facility] Hospitalerum or plasma urea nitrogen/creatinine mass bniui5697-66-19 10:34:00* Test Item Value Reference Range Interpretation Comments BUN/Creatinine Ratio (test code = 3097-3) 17 6-25 [facility] CenterEstimated glomerular filtration rate (GFR) qiepshgkbdwzs6651-57-15 10:34:00* Test Item Value Reference Range Interpretation Comments Estimat Glomerular Filtration Rate (test code = 668032150) 51 >60 Ranges were taken from the National Kidney Disease Education Program and the [facility] Kid[facility] Foundation literature.Reference ranges:60 or greater: Wrflsb80-37 ( for 3 consecutive months): Chronic kidney disease 15 or less: Kidney failureMatagorda Regional Medical CenterGlucose rrardajvish8341-85-75 10:34:00* Test Item Value Reference Range Interpretation Comments Glucose Level (test code = LNO7942) 106 74-118 [facility] Hospitalerum or plasma calcium measurement (mass/volume)2019-11-13 10:34:00* Test Item Value Reference Range Interpretation Comments Calcium Level (test code = 76961-9) 8.9 8.4-10.2 [facility] Hospitalerum or plasma magnesium measurement (mass/volume)2019-11-13 10:34:00* Test Item Value Reference Range Interpretation Comments Magnesium Level (test code = 72238-5) 1.8 1.3-2.1 [facility] Hospitalerum or plasma total bilirubin measurement (mass/volume)2019-11-13 10:34:00* Test Item Value Reference Range Interpretation Comments Total Bilirubin (test code = 1975-2) 0.4 0.2-1.2 [facility] CenterFluoroscopic procedure less than one hour toifhkwp7000-77-24 10:34:00* Test Item Value Reference Range Interpretation Comments Aspartate Amino Transf (AST/SGOT) (test code = Aspartate Amino Transf (AST/SGOT)) 23 5-34 [facility] Hospitalerum or plasma alanine aminotransferase measurement (enzymatic activity/volume)2019-11-13 10:34:00* Test Item Value Reference Range Interpretation Comments Alanine Aminotransferase (ALT/SGPT) (test code = 1742-6) 27 0-55 [facility] Hospitalerum or plasma protein measurement (mass/volume)2019-11-13 10:34:00* Test Item Value Reference Range Interpretation Comments Total Protein (test code = 2885-2) 7.9 6.5-8.1 [facility] Hospitalerum or plasma albumin measurement (mass/volume)2019-11-13 10:34:00* Test Item Value Reference Range Interpretation Comments Albumin (test code = 1751-7) 3.6 3.5-5.0 [facility] CenterPlasma globulin measurement (mass/volume) 2019-11-13 10:34:00* Test Item Value Reference Range Interpretation Comments Globulin (test code = 00246-8) 4.3 2.3-3.5 [facility] Hospitalerum or plasma albumin/globulin mass kyqky2688-39-89 10:34:00* Test Item Value Reference Range Interpretation Comments Albumin/Globulin Ratio (test code = 1759-0) 0.8 0.8-2.0 [facility] Hospitalerum or plasma alkaline phosphatase measurement (enzymatic activity/volume)2019-11-13 10:34:00* Test Item Value Reference Range Interpretation Comments Alkaline Phosphatase (test code = 6768-6) 68 40-150 [facility] Hospitalerum or plasma creatine kinase measurement (enzymatic activity/volume)2019-11-13 10:34:00* Test Item Value Reference Range Interpretation Comments Creatine Kinase (test code = 2157-6) 68 29-168 [facility] Hospitalerum or plasma creatine kinase MB measurement (mass/volume)2019-11-13 10:34:00* Test Item Value Reference Range Interpretation Comments Creatine Kinase MB (test code = 05437-4) 0.60 0-5.0 [facility] CenterTroponin I measurement by highly sensitive enzyme phacbhtpnkc2075-16-72 10:34:00* Test Item Value Reference Range Interpretation Comments Troponin I (test code = 18682-5) 0.025 0-0.300 [facility] CenterCHEST SINGLE (PORTABLE)2019-11-08 23:21:00 [facility] [address] [address] Patient Name: EMILI CHATMAN MR #: [id number] : 1960 Age/Sex: 59/F Req #: [id number] Adm Physician: Ordered by: MARTY KEYS MD Report #: [id number] Location: ER Room/Bed: Procedure: [id number] DX/CHES T SINGLE (PORTABLE) Exam Date: 11/08/19 [...] 11:24 PM Dictated By: TIESHA STRANGE MD [id number] Transcribed By: MEGA on 11/08/19 4352 COPY TO: MARTY KEYS MD Blood leukocytes automated count (number/volume)2019-11-08 22:06:00* Test Item Value Reference Range Interpretation Comments White Blood Count (test code = 6690-2) 5.46 4.8-10.8 [facility] automated count (number/volume)2019-11-08 22:06:00* Test Item Value Reference Range Interpretation Comments Red Blood Count (test code = 789-8) 4.36 3.6-5.1 [facility] CenterBlood hemoglobin measurement (moles/volume)2019-11-08 22:06:00* Test Item Value Reference Range Interpretation Comments Hemoglobin (test code = 10767-9) 13.2 12.0-16.0 [facility] CenterAutomated blood hematocrit (volume fraction)2019-11-08 22:06:00* Test Item Value Reference Range Interpretation Comments Hematocrit (test code = 4544-3) 39.6 34.2-44.1 [facility] CenterAutomated erythrocyte mean corpuscular zpbyet3036-15-24 22:06:00* Test Item Value Reference Range Interpretation Comments Mean Corpuscular Volume (test code = 787-2) 90.8 81-99 [facility] CenterAutomated erythrocyte mean corpuscular hemoglobin (mass per erythrocyte)2019-11-08 22:06:00* Test Item Value Reference Range Interpretation Comments Mean Corpuscular Hemoglobin (test code = 785-6) 30.3 28-32 [facility] CenterAutomated erythrocyte mean corpuscular hemoglobin concentration measurement (mass/volume)2019-11-08 22:06:00* Test Item Value Reference Range Interpretation Comments Mean Corpuscular Hemoglobin Concent (test code = 786-4) 33.3 31-35 [facility] CenterRDW VeoDp-Lut8285-97-28 22:06:00* Test Item Value Reference Range Interpretation Comments Red Cell Distribution Width (test code = 63712-7) 12.4 11.7 -14.4 [facility] CenterAutomated blood platelet count (count/volume)2019-11-08 22:06:00* Test Item Value Reference Range Interpretation Comments Platelet Count (test code = 777-3) 277 140-360 [facility] CenterAutomated blood segmented neutrophil count as percentage of total bdwdoknudw4553-28-59 22:06:00* Test Item Value Reference Range Interpretation Comments Neutrophils (%) (Auto) (test code = 30314-0) 63.9 38.7-80.0 [facility] CenterAutomated blood lymphocyte count as percentage ot total makhbvgmiz4450-69-51 22:06:00* Test Item Value Reference Range Interpretation Comments Lymphocytes (%) (Auto) (test code = 736-9) 28.9 18.0-39.1 [facility] CenterAutomated blood monocyte count as percentage of total foubdowgtf3670-23-21 22:06:00* Test Item Value Reference Range Interpretation Comments Monocytes (%) (Auto) (test code = 5905-5) 6.4 4.4-11.3 [facility] CenterAutomated blood eosinophil count as percentage of total cufwshxnow6870-61-92 22:06:00* Test Item Value Reference Range Interpretation Comments Eosinophils (%) (Auto) (test code = 713-8) 0.4 0.0-6.0 [facility] CenterAutomated blood basophil count as percentage of total cufmtijjpo2550-19-25 22:06:00* Test Item Value Reference Range Interpretation Comments Basophils (%) (Auto) (test code = 706-2) 0.2 0.0-1.0 [facility] CenterFluoroscopic procedure less than one hour tvidvqov5491-86-80 22:06:00* Test Item Value Reference Range Interpretation Comments IM GRANULOCYTES % (test code = IM GRANULOCYTES %) 0.2 0.0- 1.0 [facility] CenterAutomated blood neutrophil count 2019-11-08 22:06:00* Test Item Value Reference Range Interpretation Comments Neutrophils # (Auto) (test code = 751-8) 3.5 2.1-6.9 [facility] CenterBlood lymphocytes count (number/volume) 2019-11-08 22:06:00* Test Item Value Reference Range Interpretation Comments Lymphocytes # (Auto) (test code = 56377-5) 1.6 1.0-3.2 [facility] CenterBlood monocytes automated count (number/volume)2019-11-08 22:06:00* Test Item Value Reference Range Interpretation Comments Monocytes # (Auto) (test code = 742-7) 0.4 0.2-0.8 [facility] CenterAutomated blood eosinophil count 2019-11-08 22:06:00* Test Item Value Reference Range Interpretation Comments Eosinophils # (Auto) (test code = 711-2) 0.0 0.0-0.4 [facility] CenterAutomated blood basophil count (count/volume)2019-11-08 22:06:00* Test Item Value Reference Range Interpretation Comments Basophils # (Auto) (test code = 704-7) 0.0 0.0-0.1 [facility] CenterFluoroscopic procedure less than one hour lltmawoq0847-70-19 22:06:00* Test Item Value Reference Range Interpretation Comments Absolute Immature Granulocyte (auto (conner t code = Absolute Immature Granulocyte (auto) 0.01 0-0.1 [facility] Hospitalerum or plasma sodium measurement (moles/volume)2019-11-08 22:06:00* Test Item Value Reference Range Interpretation Comments Sodium Level (test code = 2951-2) 143 136-145 [facility] Hospitalerum or plasma potassium measurement (moles/volume)2019-11-08 22:06:00* Test Item Value Reference Range Interpretation Comments Potassium Level (test code = 2823-3) 3.5 3.5-5.1 [facility] Hospitalerum or plasma chloride measurement (moles/volume)2019-11-08 22:06:00* Test Item Value Reference Range Interpretation Comments Chloride Level (test code = 2075-0) 108 98-107 [facility] Hospitalerum or plasma carbon dioxide, total measurement (moles/volume)2019-11-08 22:06:00* Test Item Value Reference Range Interpretation Comments Carbon Dioxide Level (test code = 2028-9) 22 [facility] Hospitalerum or plasma anion gic5596-83-82 22:06:00* Test Item Value Reference Range Interpretation Comments Anion Gap (test code = 01623-9) 16.5 8-16 [facility] Hospitalerum or plasma urea nitrogen measurement (mass/volume)2019-11-08 22:06:00* Test Item Value Reference Range Interpretation Comments Blood Urea Nitrogen (test code = 3094-0) 16 7-26 [facility] Hospitalerum or plasma creatinine measurement (mass/volume)2019-11-08 22:06:00* Test Item Value Reference Range Interpretation Comments Creatinine (test code = 2160-0) 1.11 0.57-1.11 [facility] Hospitalerum or plasma urea nitrogen/creatinine mass akowr0178-48-16 22:06:00* Test Item Value Reference Range Interpretation Comments BUN/Creatinine Ratio (test code = 3097-3) 14 - [facility] CenterEstimated glomerular filtration rate (GFR) inwwculmistlw5793-53-03 22:06:00* Test Item Value Reference Range Interpretation Comments Estimat Glomerular Filtration Rate (test code = 216344688) 50 >60 Ranges were taken from the National Kidney Disease Education Program and the [facility] literature.Reference ranges:60 or greater: Xwcxhp81-33 ( for 3 consecutive months): Chronic kidney disease 15 or less: Kidney failureMatagorda Regional Medical CenterGlucose corfylbophc1334-77-16 22:06:00* Test Item Value Reference Range Interpretation Comments Glucose Level (test code = RIL4325) 146 74-118 [facility] Hospitalerum or plasma calcium measurement (mass/volume)2019-11-08 22:06:00* Test Item Value Reference Range Interpretation Comments Calcium Level (test code = 95668-5) 9.2 8.4-10.2 [facility] Hospitalerum or plasma total bilirubin measurement (mass/volume)2019-11-08 22:06:00* Test Item Value Reference Range Interpretation Comments Total Bilirubin (test code = 1975-2) 0.3 0.2-1.2 [facility] CenterFluoroscopic procedure less than one hour wiocaqqg0719-82-52 22:06:00* Test Item Value Reference Range Interpretation Comments Aspartate Amino Transf (AST/SGOT) (test code = Aspartate Amino Transf (AST/SGOT)) 36 5-34 [facility] Hospitalerum or plasma alanine aminotransferase measurement (enzymatic activity/volume)2019-11-08 22:06:00* Test Item Value Reference Range Interpretation Comments Alanine Aminotransferase (ALT/SGPT) (test code = 1742-6) 47 0-55 [facility] Hospitalerum or plasma protein measurement (mass/volume)2019-11-08 22:06:00* Test Item Value Reference Range Interpretation Comments Total Protein (test code = 2885-2) 8.0 6.5-8.1 [facility] Hospitalerum or plasma albumin measurement (mass/volume)2019-11-08 22:06:00* Test Item Value Reference Range Interpretation Comments Albumin (test code = 1751-7) 3.8 3.5-5.0 [facility] CenterPlasma globulin measurement (mass/volume) 2019-11-08 22:06:00* Test Item Value Reference Range Interpretation Comments Globulin (test code = 45222-2) 4.2 2.3-3.5 [facility] Hospitalerum or plasma albumin/globulin mass bytqg8139-56-91 22:06:00* Test Item Value Reference Range Interpretation Comments Albumin/Globulin Ratio (test code = 1759-0) 0.9 0.8-2.0 [facility] Hospitalerum or plasma alkaline phosphatase measurement (enzymatic activity/volume)2019-11-08 22:06:00* Test Item Value Reference Range Interpretation Comments Alkaline Phosphatase (test code = 6768-6) 86 40-150 [facility] Hospitalerum or plasma creatine kinase measurement (enzymatic activity/volume)2019-11-08 22:06:00* Test Item Value Reference Range Interpretation Comments Creatine Kinase (test code = 2157-6) 56 29-168 [facility] Hospitalerum or plasma creatine kinase MB measurement (mass/volume)2019-11-08 22:06:00* Test Item Value Reference Range Interpretation Comments Creatine Kinase MB (test code = 53463-3) 0.40 0-5.0 [facility] CenterTroponin I measurement by highly sensitive enzyme xwzazzchbyf6302-41-48 22:06:00* Test Item Value Reference Range Interpretation Comments Troponin I (test code = 81290-9) < 0.001 0-0.300 [facility]
[2019-11-18] MEDS ORDERED: METOPROLOL TARTRATE INJ 1 MG/ML VIAL IV PRN (19:00)
[2019-11-18] MEDS ORDERED: TEMAZEPAM 15 MG CAP PO PRN (19:00)
[2019-11-18] MEDS ORDERED: POLYETHYLENE GLYCOL 3350 17 GM PACK PO PRN (19:00)
[2019-11-18] MEDS ORDERED: ONDANSETRON HCL INJ 2MG/ML 2ML 2 MG/ML VIAL IV PRN (19:00)
--- NOTE | 2019-11-18 22:00 | NUR ---
SPOKE TO DR. LAUREN, LEAVE ORDERS PLACED BY ROSEANN DU NP.
[2019-11-19] VITALS (9 sets, daily range): BP systolic 117–130; BP diastolic 56–70
--- NOTE | 2019-11-19 00:13 | NUR ---
Patient received via stretcher from ER. AAO x 4 . Patient had no complaints of pain. Respirations even and non-labored. Admission history obtained. Initial physical assessment performed. Patient oriented to room, call light, visiting policy and plan of care. Safety measures implemented. Patient instructed to call for assistance when needed. Call light within reach.
--- NOTE | 2019-11-19 01:15 | NUR ---
Blood specimen sent to lab for analysis of cardiac enzymes.
[2019-11-19 01:43] LABS: CREATINE KINASE MB 0.3 ng/mL (0-5.0)
[2019-11-19 05:27] LABS: BASOPHILS % 0.2 % (0.0-1.0); EOSINOPHILS % 0.2 % (0.0-6.0); HEMATOCRIT 36.6 % (34.2-44.1); HEMOGLOBIN 12.1 g/dL (12.0-16.0); LYMPHOCYTES # (AUTO) 2.1 (1.0-3.2); LYMPHOCYTES % 44.9 % (18.0-39.1); MEAN CORPUSCULAR HEMOGLOBIN 30.7 pg (28-32); MEAN CORPUSCULAR HGB CONC 33.1 g/dL (31-35); MEAN CORPUSCULAR VOLUME 92.9 fL (81-99); MONOCYTES # (AUTO) 0.2 (0.2-0.8); NEUTROPHILS # (AUTO) 2.4 (2.1-6.9); NEUTROPHILS % 49.3 % (38.7-80.0); PLATELET COUNT 313 x10e3/uL (140-360); RED BLOOD COUNT 3.94 x10e6/uL (3.6-5.1); RED CELL DISTRIBUTION WIDTH 12.5 % (11.7-14.4)
[2019-11-19 05:48] LABS: ALANINE AMINOTRANSFERASE 21 IU/L (0-55); ALBUMIN/GLOBULIN RATIO 0.7 (0.8-2.0); ALKALINE PHOSPHATASE 54 IU/L (40-150); ANION GAP 15.8 mmol/L (8-16); BLOOD UREA NITROGEN 16 mg/dL (7-26); BUN/CREATININE RATIO 19 (6-25); CALCIUM 9.1 mg/dL (8.4-10.2); CARBON DIOXIDE 24 mmol/L (22-29); CHLORIDE 104 mmol/L (98-107); CREATININE, SERUM 0.83 mg/dL (0.57-1.11); EST GLOMERULAR FILTRATION RATE > 60 ML/MIN (60-); GLUCOSE 83 mg/dL (74-118); POTASSIUM 3.8 mmol/L (3.5-5.1); SODIUM 140 mmol/L (136-145)
[2019-11-19 06:15] LABS: CHOL/HDL RATIO 6.6 (3.0-3.6); MAGNESIUM 2.1 MG/DL (1.3-2.1); PHOSPHORUS 3.4 MG/DL (2.3-4.7)
--- NOTE | 2019-11-19 06:19 | NUR ---
Dr. Skinner and Deb notified of " Routine Consult".
[2019-11-19 06:35] LABS: THYROID STIMULATING HORMONE 0.908 uIU/mL (0.350-4.940)
--- NOTE | 2019-11-19 06:56 | NUR ---
Urine specimen sent to lab for analysis.
--- NOTE | 2019-11-19 07:00 | NUR ---
Patient resting comfortably. Shift report given to oncoming nurse.
[2019-11-19 07:16] LABS: CLARITY,URINE CLEAR (CLEAR); COLOR,URINE YELLOW (YELLOW); LEUKOCYTE ESTERASE ,URINE NEGATIVE (NEGATIVE); NITRITE,URINE NEGATIVE (NEGATIVE); PROTEIN,URINE DIPSTICK 2+ (NEGATIVE)
[2019-11-19 07:17] LABS: BILIRUBIN,URINE SMALL (NEGATIVE); KETONES,URINE 1+ (NEGATIVE); URINE UROBILINOGEN 0.2 mg/dL (0.2 - 1)
[2019-11-19] MEDS ORDERED: ALBUTEROL SULFATE HFA 8GM INHALATION AEROSOL INH PRN (07:30)
[2019-11-19 07:38] LABS: BACTERIA,URINE FEW /HPF; EPITHELIAL CELLS,URINE FEW /LPF; MUCUS,URINE FEW (RARE); RBC,URINE 0-5 /HPF (0-5); WBC,URINE (MAN) 0-5 /HPF (0-5)
[2019-11-19] MEDS: FAMOTIDINE 20 MG/2 ML VIAL IV SCH ×2 (08:09→15:19)
[2019-11-19] MEDS: AZITHROMYCIN 500MG/NS 250 ML 250 ML IV SCH (08:09)
[2019-11-19] MEDS: ZINC SULFATE 220 MG CAP PO SCH ×2 (08:10→15:20)
[2019-11-19] MEDS: ASCORBIC ACID 500 MG TAB PO SCH ×2 (08:10→15:20)
[2019-11-19] MEDS: ENOXAPARIN 30 MG/0.3 ML SYR SC SCH ×3 (08:10→19:38)
[2019-11-19] MEDS: CHOLECALCIFEROL 400 UNIT TAB PO SCH (08:10)
[2019-11-19] MEDS: DOCUSATE SODIUM 100 MG CAP PO SCH ×3 (08:10→14:32)
[2019-11-19 08:18] LABS: LYMPHOCYTES % (MANUAL) 34 % (19-48); MONOCYTES % (MANUAL) 7 % (3.4-9.0); NEUTROPHILS % (MANUAL) 57 % (40-74); PLATELET ESTIMATE ADEQUATE; PLATELET MORPHOLOGY COMMENT NORMAL; RBC MORPHOLOGY COMMENT NORMAL
--- NOTE | 2019-11-19 08:25 | NUR ---
Patient, awake, alert. Respiration even and unlabored without SOB. Patient stated she does not take home medications at home. Call light in reach.
[2019-11-19] MEDS ORDERED: SODIUM CHLORIDE 0.9% 250ML 250 ML ONE (08:26)
[2019-11-19] MEDS: SODIUM CHLORIDE 0.9% 1000ML 1,000 ML IV SCH ×3 (08:29→21:03)
--- NOTE | 2019-11-19 08:47 | History and Physical ---
REASON FOR ADMISSION: A 59-year-old female, who came in with shortness of breath. HISTORY OF PRESENTING ILLNESS: Ms. Maya Kendrick with recent diagnosis of COVID-19 about 2 weeks ago, was in her usual state of health. The patient was started on prednisone and also Bactrim. The patient was doing fine until she started to have generalized weakness including nausea and vomiting. The patient was also short of breath on exertion and the patient came to emergency room, was admitted to the hospital for hypoxia, shortness of breath, and bacterial superimposed infection. PAST MEDICAL HISTORY: Noncontributory. PAST SURGICAL HISTORY: History of cholecystectomy and two C-sections, otherwise noncontributory. ALLERGIES: TO PENICILLIN AND ONDANSETRON. HOME MEDICATIONS: Include cholecalciferol, otherwise negative. SOCIAL HISTORY: No EtOH. No IV drug abuse. No history of smoking either. FAMILY HISTORY: Positive for breast cancer, history of heart disease in the family and history of COPD in the family. REVIEW OF SYSTEMS: Negative for chest pain. Positive for shortness of breath. Positive for nausea. Positive for vomiting. No diarrhea. No constipation. No rectal bleeding. No hematochezia. No hematemesis either. No diplopia. No blurry vision. Increased fatigue on walking and generalized weakness is also exacerbated. PHYSICAL EXAMINATION: VITAL SIGNS: Temperature is 102.9, pulse of 89, respirations of 16, blood pressure is 144/84. HEENT: Normocephalic, atraumatic. Pupils are reactive to light and accommodation. CVS: S1 and S2 normal. LUNGS: Decreased air entry into all lung moreno. Positive for crackles at lung moreno. ABDOMEN: Soft, nontender, and nondistended. EXTREMITIES: No clubbing, no cyanosis, no edema. LABORATORY VALUES: White count is 6.63, hemoglobin of 12.9, hematocrit of 39.5, neutrophil count of 74. Chemistries; sodium of 140, potassium 3.8, BUN of 16 and creatinine 0.83, albumin of 3 and , LDL of 83, HDL of 22. Urine, pending. Serology, coronavirus pending. IMAGING STUDIES: Shows multifocal pneumonia, likely viral. ASSESSMENT AND PLAN: Ms. Maya Kendrick with: 1. Viral pneumonia, possible superimposed bacterial infection. 2. Pyrexia. 3. History of COVID-19 positive. 4. Shortness of breath with exertion. No current hypoxia. PLAN: 1. Start the patient on azithromycin for superimposed bacterial pneumonia. 2. The patient's nausea could be secondary to Bactrim. 3. probably treated with antibiotic as an outpatient. 4. We will go ahead and put the patient is on fluids. 5. DVT prophylaxis. 6. Albuterol HFA as needed. We will also consult for Dr. Boyd and Dr. Skinner pending. Further recommendation per clinical course. We will continue to monitor the patient. MD ISHAAN Espinoza/MODL /[id number]
--- NOTE | 2019-11-19 10:00 | NUR ---
Notified by lab that patient is negative for covid-19.
[2019-11-19 10:23] LABS: CREATINE KINASE 48 IU/L (29-168)
--- NOTE | 2019-11-19 14:54 | Consultation ---
DATE OF CONSULTATION: CHIEF COMPLAINT: Cough and dyspnea. HISTORY OF PRESENT ILLNESS: The patient is a 59-year-old woman. She reports cough and dyspnea for about two and half weeks. She went to [facility] and had a positive COVID test. She was improving, but had noted some worsening symptoms. She denies any fevers. She is not having chest pain. PAST SURGICAL HISTORY: Status post x2. PAST MEDICAL HISTORY: 1. No prior history of asthma. 2. No prior history of diabetes. 3. No prior heart disease. ALLERGIES: THE PATIENT IS ALLERGIC TO PENICILLINS. FAMILY HISTORY: Noncontributory. SOCIAL HISTORY: The patient is not a smoker or drinker. REVIEW OF SYSTEMS: The patient is afebrile. The patient is not having any headache. There is no chest pain. No nausea or vomiting. There is some dyspnea and some cough. There is no abdominal pain. There is no leg edema. PHYSICAL EXAMINATION: VITAL SIGNS: The patient is afebrile. The blood pressure is 126/70 and the saturation is 93% on room air. HEENT: Shows no facial swelling or erythema. LYMPHATIC: Shows no submandibular, cervical, or supraclavicular adenopathy. CARDIAC: Reveals regular rate and rhythm with normal S1, S2. LUNGS: Auscultation of lungs reveals crackles at the bases. There is no wheezing. ABDOMEN: Soft and nontender. There is no rebound or guarding. EXTREMITIES: Shows no leg edema or calf tenderness. There is no cyanosis or clubbing. SKIN: Shows no rashes. NEUROLOGIC: Shows no focal abnormalities. LABORATORY DATA: White blood cell count is 4.7, hemoglobin is 12.1, and the platelet count is 313. BUN to creatinine ratio is normal. The albumin is 3. Other electrolytes within normal limits. RADIOGRAPHIC DATA: Chest x-ray shows bilateral infiltrates. IMPRESSION: 1. Viral pneumonia and COVID-19 infection. 2. Persistent cough. PLAN: 1. Continue antibiotics. 2. Rescue inhaler as needed. 3. Oxygen as needed. 4. Cough suppressants. Rodney Skinner MD LM/FRANKI /[id number]
--- NOTE | 2019-11-19 15:12 | NUR ---
Notified Dr. Forrest that patient covid-19 came back negative. Verbal order given to transfer patient to [facility].
--- NOTE | 2019-11-19 15:57 | NUR ---
Report given to receiving nurse. patient is going to move to room 295.
--- NOTE | 2019-11-19 16:15 | NUR ---
Patient is transported to [id number]
--- NOTE | 2019-11-19 16:34 | NUR ---
infectious disease consultation Patient seen and examined all consult reviewed Chief complaints Cough and dyspnea. HISTORY OF PRESENT ILLNESS: The patient is a 59-year-old woman. She reports cough and dyspnea for about two and half weeks. She went to [facility] and had a positive COVID test. She was improving, but had noted some worsening symptoms. She denies any fevers. She is not having chest pain. patient apparently was doing well with no system no shortness of breath and cough repeat covert is negative so far minutes with the patient she was feeling better PAST SURGICAL HISTORY: Status post x2. PAST MEDICAL HISTORY: 1. No prior history of asthma. 2. No prior history of diabetes. 3. No prior heart disease. ALLERGIES: THE PATIENT IS ALLERGIC TO PENICILLINS. FAMILY HISTORY: Noncontributory. SOCIAL HISTORY: The patient is not a smoker or drinker. REVIEW OF SYSTEMS: The patient is afebrile. The patient is not having any headache. There is no chest pain. No nausea or vomiting. There is some dyspnea and some cough. There is no abdominal pain. There is no leg edema. PHYSICAL EXAMINATION: VITAL SIGNS: The patient is afebrile. The blood pressure is 126/70 and the saturation is 93% on room air. HEENT: Shows no facial swelling or erythema. LYMPHATIC: Shows no submandibular, cervical, or supraclavicular adenopathy. CARDIAC: Reveals regular rate and rhythm with normal S1, S2. LUNGS: Auscultation of lungs reveals crackles at the bases. There is no wheezing. ABDOMEN: Soft and nontender. There is no rebound or guarding. EXTREMITIES: Shows no leg edema or calf tenderness. There is no cyanosis or clubbing. SKIN: Shows no rashes. NEUROLOGIC: Shows no focal abnormalities. LABORATORY DATA: White blood cell count is 4.7, hemoglobin is 12.1, and the platelet count is 313. BUN to creatinine ratio is normal. The albumin is 3. Other electrolytes within normal limits. RADIOGRAPHIC DATA: Chest x-ray shows bilateral infiltrates. IMPRESSION: 1. Viral pneumonia and COVID-[address] more than 2 weeks ago noting the patient's coming back with bacterial pneumonia though the patient is infectious at the present time she can go up isolation She is not hypoxemic We will treat with Rocephin 1 g daily for 5 days azithromycin 5 mg daily for 3 days No need for Decadron No need for anticoagulation Continue supportive care Albuterol for cough Multivitamins vitamin C vitamin D and zinc supplement Supportive care 2. Persistent cough.
--- NOTE | 2019-11-19 16:35 | NUR ---
PATIENT RECEIVED FROM OBS PER WHEEL CHAIR. ALERT AND VERBALLY RESPONSIVE. IV FLUID INFUSING ORDERED. OUT OF BED TO CHAIR. CALL LIGHT AT REACH. V/S 99.1-88-18-117/62 AND 96% ON RA.
--- NOTE | 2019-11-19 17:25 | NUR ---
HEMODIALYSIS TREATMENT COMPLETED. 1 LITER REMOVED PER DIALYSIS NURSE, B/P 181/80 AND HR 95. SCHEDULED B/P MEDICATION GIVEN ORDERED. PATIENT IN BED WITH NO S/S OF DISTRESS. Addendum: 11/19/19 at 1741 by Migdalia Lorea RN WRONG PATIENT.
--- NOTE | 2019-11-19 19:25 | NUR ---
Patient visited in room during nursing rounds. Patient alert and oriented x3. Ambulatory in room prn. Pt denies any pain or discomfort at this time. Pt stated she tends to cough often when she moves or ambulates in room. Pt on IVF (NS at 100ml/hr) and scheduled IV antibiotics. Call abraham within reach. Will monitor pt closely.
[2019-11-20] VITALS (8 sets, daily range): BP systolic 116–168; BP diastolic 56–85
--- NOTE | 2019-11-20 07:30 | NUR ---
PATIENT SITTING UP IN BED FIXING HER HAIR, NO DISTRESS NOTED. IV FLUID INFUSING ORDERED. BED IN LOWER POSITION, CALL LIGHT AT REACH.
[2019-11-20] MEDS: AZITHROMYCIN 500MG/NS 250 ML 250 ML IV SCH (08:16)
[2019-11-20] MEDS: ACETAMINOPHEN 325 MG TAB PO PRN (08:30)
--- NOTE | 2019-11-20 08:32 | Progress Note ---
DATE: SUBJECTIVE: The patient is admitted to the COVID-19 Unit yesterday for history of COVID and also for shortness of breath. The patient has been seen by Pulmonology. The patient is using her rescue inhalers. No continuous symptoms at this time, just for weakness. OBJECTIVE: VITAL SIGNS: Temperature is 98.8, pulse of 82, respirations of 18, blood pressure is 131/72, pulse oximetry of 98%. HEENT: Normocephalic and atraumatic. Pupils are reactive. CVS: S1 and S2 are normal. Regular rate and rhythm. LUNGS: Positive for crackles at the bases. ABDOMEN: Soft, nontender, nondistended. EXTREMITIES: No clubbing, no cyanosis, no edema. LABORATORY STUDIES: White count is normal at 4.77, hemoglobin of 12.1, and hematocrit of 36.6. Chemistries are none being done. The patient's troponin have been trended to be negative. Serology; Coronavirus is back and is not detected. ASSESSMENT: Ms. Maya Jones with: 1. Viral pneumonia, possible superimposed bacterial infection. Continue with azithromycin right now. 2. Continue on fluids. 3. Deep venous thrombosis prophylaxis. 4. Albuterol HFA as needed. PLAN: Oxygen as needed and cough suppressant and rescue inhaler. Possible discharge tomorrow. Further recommendation per clinical course. MD ISHAAN Espinoza/SOFIAL /[id number]
[2019-11-20] MEDS: DOCUSATE SODIUM 100 MG CAP PO SCH ×3 (09:00→17:00)
[2019-11-20] MEDS: ENOXAPARIN 30 MG/0.3 ML SYR SC SCH ×3 (09:00→20:27)
[2019-11-20] MEDS: CHOLECALCIFEROL 400 UNIT TAB PO SCH (09:02)
[2019-11-20] MEDS: ZINC SULFATE 220 MG CAP PO SCH ×2 (09:02→17:00)
[2019-11-20] MEDS: ASCORBIC ACID 500 MG TAB PO SCH ×2 (09:02→17:00)
[2019-11-20] MEDS: FAMOTIDINE 20 MG/2 ML VIAL IV SCH ×2 (09:02→17:15)
--- NOTE | 2019-11-20 12:20 | NUR ---
PATIENT AMBULATED TO THE RESTROOM AND BACK TO BED. CALL LIGHT AT REACH.
[2019-11-20] MEDS: SODIUM CHLORIDE 0.9% 1000ML 1,000 ML IV SCH ×2 (13:30→20:30)
[2019-11-20] MEDS ORDERED: PROMETHAZINE 12.5MG/ NACL 0.9% 12.5 MG/50 ML BAG IV PRN (18:00)
--- NOTE | 2019-11-20 18:07 | NUR ---
PATIENT C/O N/V, NOTIFIED. NEW ORDER RECEIVED.
--- NOTE | 2019-11-20 19:30 | NUR ---
Patient visited in room during nursing rounds. Patient alert and oriented x3. Ambulatory in room prn. Pt denies any pain or discomfort at this time. Patient mentioned that she had quite a horrible day today and that the antibiotic she received today made her have diarrhea (about 10 trips to the bathroom) and that she told Dr. Mitzi Skinner about it. Pt aware that Dr. Skinner discontinued the IV antibiotic and that he ordered Phenergan 12.5mg IV prn for nausea. Pt still on IVF (NS at 100ml/hr). Call abraham within reach. Will monitor pt closely.
--- NOTE | 2019-11-20 20:00 | NUR ---
Patient eating snacks (e.g. sandwiches, strawberry and orange salas and vanilla pudding) at this time. Pt stated she wants to get well and stronger. But pt states she does not feel ready to go home yet.
--- NOTE | 2019-11-20 20:20 | Progress Note ---
DATE: Pulmonary Critical Care Progress Note SUBJECTIVE: The patient reports some nausea and vomiting today as well as diarrhea. She feels her symptoms are from the antibiotics. She reports an allergy to Zofran. PHYSICAL EXAMINATION: VITAL SIGNS: Stable. HEENT: Shows no facial swelling or erythema. CARDIAC: Reveals regular rate and rhythm with normal S1 and S2. LUNGS: Auscultation of lungs reveals clear breath sounds bilaterally. There is no wheezing. ABDOMEN: Soft and nontender. There is no rebound or guarding. EXTREMITIES: Shows no leg edema or calf tenderness. There is no cyanosis or clubbing. LABORATORY DATA: BUN to creatinine ratio is normal. Other electrolytes are within normal limits. CBC is within normal limits. IMPRESSION: 1. Nausea, vomiting, and diarrhea. 2. Viral pneumonia and COVID-19 infection. 3. Persistent cough. PLAN: 1. Stop antibiotics. 2. IV fluids. 3. Low-dose Phenergan p.r.n. for nausea and vomiting. Rodney Skinner MD [facility]/FRANKI /[id number]
--- NOTE | 2019-11-20 22:01 | NUR ---
infectious disease progress note patient seen and examined chart reviewed discussed with medical team Events noted Level data noted Patient was alert oriented vitals stable afebrile HEENT normocephalic pyrotechnic supple no JVD no thyromegaly chest clear bilateral heart S1-S2 for abdomen soft bowels are present extremities no edema skin no rash The patient reports some nausea and vomiting today as well as diarrhea. She feels her symptoms are from the antibiotics. She reports an allergy to Zofran. . There is no cyanosis or clubbing. LABORATORY DATA: BUN to creatinine ratio is normal. Other electrolytes are within normal limits. CBC is within normal limits. IMPRESSION: 1. Nausea, vomiting, and diarrhea. 2. Viral pneumonia and COVID-19 infection. 3. Persistent cough. WE WILL dc ANTIBIOTIC sUPPORTIVE CARE
[2019-11-21] VITALS (8 sets, daily range): BP systolic 112–135; BP diastolic 60–91
[2019-11-21] MEDS: ACETAMINOPHEN 325 MG TAB PO PRN ×3 (00:20→22:07)
[2019-11-21] MEDS ORDERED: AZITHROMYCIN 250MG/NS 100 ML 100 ML IV SCH ×3 (05:00→09:00)
--- NOTE | 2019-11-21 07:00 | NUR ---
received bedside report, pt is sleeping no s/s of distress. call light within reach and bed safety in place
[2019-11-21] MEDS: DOCUSATE SODIUM 100 MG CAP PO SCH ×2 (08:13→17:00)
[2019-11-21] MEDS: ASCORBIC ACID 500 MG TAB PO SCH ×2 (08:13→17:00)
[2019-11-21] MEDS: CHOLECALCIFEROL 400 UNIT TAB PO SCH (08:13)
[2019-11-21] MEDS: FAMOTIDINE 20 MG/2 ML VIAL IV SCH ×2 (08:13→17:00)
[2019-11-21] MEDS: ZINC SULFATE 220 MG CAP PO SCH ×2 (08:14→17:00)
[2019-11-21] MEDS: SODIUM CHLORIDE 0.9% 1000ML 1,000 ML IV SCH ×2 (08:14→19:28)
[2019-11-21] MEDS ORDERED: CITRATE OF MAGNESIA 300ML BOTTLE PO ONE (16:30)
--- NOTE | 2019-11-21 17:20 | Progress Note ---
DATE: SUBJECTIVE: The patient feels better. She received dialysis. She is complaining of constipation. PHYSICAL EXAMINATION: VITAL SIGNS: Blood pressure is 126/70, saturation is 96%, and the T-max is 100.5. HEENT: Shows no facial swelling or erythema. The oropharynx is normal. LYMPHATIC: Shows no submandibular, cervical, or supraclavicular adenopathy. CARDIAC: Reveals regular rate and rhythm with normal S1 and S2. LUNGS: Auscultation of lungs reveals rhonchorous breath sounds bilaterally. There is no wheezing. ABDOMEN: Soft and nontender. There is no rebound or guarding. LABORATORY DATA: The white blood cell count is 4.77, the hemoglobin is 12.1, and the platelet count is 313. The BUN to creatinine ratio is normal. Other electrolytes are within normal limits. Albumin is 3. IMPRESSION: 1. Nausea, vomiting, and diarrhea. 2. Viral pneumonia and COVID-19 infection. 3. Chronic kidney disease. 4. Persistent cough. PLAN: 1. Laxatives. 2. Dialysis as needed. DICTATION ENDS HERE Rodney Skinner MD [facility] /[id number]
--- NOTE | 2019-11-21 19:19 | NUR ---
notified Dr. Grubbs that the patient is refusing to have another IV started. he stated to "leave it out for now"
[2019-11-22 00:20] VITALS: BP 119/54
[2019-11-22] MEDS: ACETAMINOPHEN 325 MG TAB PO PRN (04:00)
[2019-11-22 05:29] VITALS: BP 122/53
[2019-11-22] MEDS: SODIUM CHLORIDE 0.9% 1000ML 1,000 ML IV SCH (05:30)
[2019-11-22 08:03] VITALS: BP 114/52
[2019-11-22] MEDS: DOCUSATE SODIUM 100 MG CAP PO SCH (08:28)
[2019-11-22] MEDS: CHOLECALCIFEROL 400 UNIT TAB PO SCH (08:28)
[2019-11-22] MEDS: ZINC SULFATE 220 MG CAP PO SCH (08:28)
[2019-11-22] MEDS: ASCORBIC ACID 500 MG TAB PO SCH (08:28)
[2019-11-22] MEDS: FAMOTIDINE 20 MG/2 ML VIAL IV SCH (08:28)
--- NOTE | 2019-11-23 05:57 | Discharge Summary ---
DISCHARGE DIAGNOSIS: COVID pneumonia. HISTORY OF PRESENT ILLNESS AND HOSPITAL COURSE: See hospital chart for full details. The patient is a lady, who had an outpatient diagnosis of COVID positive, who presented with increasing fever, decreased p.o. intake and worsening of her symptoms, where she was brought in. Chest x-ray did show evidence of viral pneumonia. Even though her COVID test here was negative, she was brought in and was treated with azithromycin and oxygen, and she had significant improvement on daily basis of her symptoms. At the time of discharge, she was actually on room air saturating well above 98% very comfortable, afebrile and she felt near normal and she really wanted to go home so she was discharged home follow up with me in about one week and return to the emergency room or call sooner if she has any problems. Please see hospital chart for full details. MD МАРИНА [facility]ANKI /[id number]
== END 2019-11-22 09:54 | disposition home or self-care (01) | DRG 177 ==
LOC: ER 16:20 → ERHOLD 17:37 → ER 17:49 → IMCU 23:25 → MED/SURG3 11-19 16:44
PROVIDERS: ADMIT Internal Medicine; ATTEND Internal Medicine
DX: U07.1 COVID-19 (principal); J12.89 Other viral pneumonia; R19.7 Diarrhea, unspecified; I12.9 Hypertensive chronic kidney disease with stage 1 through stage 4 chronic kidney disease, or unspecified chronic kidney disease; N18.9 Chronic kidney disease, unspecified; Z88.0 Allergy status to penicillin
CPT/HCPCS: 36415; 71045; 80053; 80061; 81001; 82550; 82553; 83036; 83735; 84100; 84443; 84484; 85025; 85610; 85730; 99284; J0456; J1650; J7030; J7050; U0002